=== PATIENT | female | born 1945 | race African-American/Black ===

== ENCOUNTER → 2016-05-21 | Outpatient (CLI) | payer MEDICARE, MEDICAID ==
[2016-05-21 13:04] LABS: HEMATOCRIT 36.5 % (36.0-47.0); HEMOGLOBIN 12.1 g/dL (12.0-15.5); HGB HCT DIFFERENCE -0.2; MEAN CORPUSCULAR HGB CONC 33.2 g/dL (32.0-36.0); MEAN CORPUSCULAR VOLUME 93 fl (80-97); RED BLOOD COUNT 3.91 10^6/uL (3.72-5.28); RED CELL DISTRIBUTION WIDTH 12.6 % (11.5-14.0); WHITE BLOOD COUNT 4.6 10^3/uL (4.0-10.5)
[2016-05-21 13:22] LABS: ANION GAP 13 (5-19); BLOOD UREA NITROGEN 13 mg/dL (7-20); CALCIUM 9.9 mg/dL (8.4-10.2); CARBON DIOXIDE 24 mmol/L (22-30); CHLORIDE 100 mmol/L (98-107); CREATININE RESULT 1.03 mg/dL (0.52-1.25); GLUCOSE 104 mg/dL (75-110); MAGNESIUM 1.4 mg/dL (1.6-2.3); POTASSIUM 4.8 mmol/L (3.6-5.0); SODIUM 137.4 mmol/L (137-145)
== END ==
LOC: OD 11:20
PROVIDERS: ATTEND Internal Medicine Nephrology
DX: I12.9 Hypertensive chronic kidney disease with stage 1 through stage 4 chronic kidney disease, or unspecified chronic kidney disease (principal); N18.2 Chronic kidney disease, stage 2 (mild); E83.42 Hypomagnesemia; D64.9 Anemia, unspecified; E87.5 Hyperkalemia
CPT/HCPCS: 36415; 80048; 83735; 85027

== ENCOUNTER → 2016-07-08 | Outpatient (CLI) | payer MEDICARE, MEDICAID | LOC: RAD 17:26 | PROVIDERS: ATTEND Family Medicine | DX: R09.1 Pleurisy (principal) | CPT/HCPCS: 71020 ==

== ENCOUNTER 2016-07-27 20:37 | Emergency (ER) | payer MEDICARE, MEDICAID ==
--- NOTE | 2016-07-27 20:55 | ER Document Report ---
ED Medical Screen (RME) - General Stated Complaint: POSSIBLE HIGH BLOOD PRESSURE Time seen by provider: 20:50 Mode of Arrival: Wheelchair Information source: Patient Notes: 71-year-old female presents to ED for elevated blood pressure headache since afternoon going down her left arm. She has history of previous strokes on the side. With some weakness on the left side which with her previous stroke. Patient states she is on Plavix. Spoke with Dr. Garcia concerning symptoms we' ll get a CT of head per her request. I have greeted and performed a rapid initial assessment of this patient. A comprehensive ED assessment and evaluation of the patient, analysis of test results and completion of medical decision making process will be conducted by an additional ED providers. TRAVEL OUTSIDE OF THE [place] IN LAST 30 DAYS: No - Related Data Allergies/Adverse Reactions: penicillin G [Penicillin G] Allergy (Severe, Verified 07/05/14 23:28) Hives Past Medical History - Past Medical History Cardiac Medical History: Reports: Hx Hypertension Neurological Medical History: Reports: Hx Cerebrovascular Accident, Hx Seizures Endocrine Medical History: Reports: Hx Diabetes Mellitus Type 2 Musculoskeltal Medical History: Reports Hx Arthritis Past Surgical History: Reports: Hx Hysterectomy - Immunizations Hx Diphtheria, Pertussis, Tetanus Vaccination: No
[2016-07-28 00:29] LABS: ABSOLUTE BASOPHILS # (AUTO) 0.1 10^3/uL (0.0-0.2); ABSOLUTE LYMPHOCYTES (AUTO) 3.8 10^3/uL (0.5-4.7); ABSOLUTE MONOCYTES (AUTO) 0.4 10^3/uL (0.1-1.4); ABSOLUTE NEUT (AUTO) 4.1 10^3/uL (1.7-8.2); BASOPHILS % (AUTO) 0.8 % (0-2); EOSINOPHILS % (AUTO) 0.3 % (0-6); HEMATOCRIT 34.5 % (36.0-47.0); HEMOGLOBIN 11.7 g/dL (12.0-15.5); HGB HCT DIFFERENCE 0.6; LYMPHOCYTES % (AUTO) 45.7 % (13-45); MEAN CORPUSCULAR HEMOGLOBIN 31.6 pg (27.0-33.4); MEAN CORPUSCULAR VOLUME 93 fl (80-97); MONOCYTES % (AUTO) 4.9 % (3-13); SEGMENTED NEUTROPHILS % (AUTO) 48.3 % (42-78); WHITE BLOOD COUNT 8.4 10^3/uL (4.0-10.5)
[2016-07-28 00:41] LABS: ALANINE AMINOTRANSFERASE 32 U/L (9-52); ALKALINE PHOSPHATASE 75 U/L (38-126); ANION GAP 15 (5-19); ASPARTATE AMINO TRANSFERASE 23 U/L (14-36); BILIRUBIN,DIRECT 0.2 mg/dL (0.0-0.4); BILIRUBIN,TOTAL 0.6 mg/dL (0.2-1.3); BLOOD UREA NITROGEN 22 mg/dL (7-20); CALCIUM 10.8 mg/dL (8.4-10.2); CARBON DIOXIDE 25 mmol/L (22-30); CHLORIDE 97 mmol/L (98-107); CREATINE KINASE 51 U/L (30-135); CREATININE RESULT 0.96 mg/dL (0.52-1.25); GLUCOSE 184 mg/dL (75-110); POTASSIUM 4.3 mmol/L (3.6-5.0); SODIUM 137.3 mmol/L (137-145)
[2016-07-28 00:46] LABS: PROTHROMBIN TIME 11.4 SEC (11.4-15.4)
[2016-07-28 00:53] LABS: CREATINE KINASE MB 0.56 ng/mL (<4.55)
[2016-07-28 00:55] LABS: TROPONIN I < 0.012 ng/mL
[2016-07-28 04:29] VITALS: BP 152/87
--- NOTE | 2016-07-28 06:15 | ER Document Report ---
ED General - General Chief Complaint: High Blood Pressure Stated Complaint: POSSIBLE HIGH BLOOD PRESSURE Mode of Arrival: Wheelchair Information source: Patient TRAVEL OUTSIDE OF THE [place] IN LAST 30 DAYS: No - HPI Notes: Patient presents with report of headache onset this afternoon, not the worst of her life. She checked her blood pressure and found it was 200 systolic and up and she took an additional dose of losartan 50 mg and came into the emergency department. Patient denies any new numbness or weakness, stating that she has a chronic left -sided weakness and mild related to an old stroke but she is able to ambulate without assistance. The patient denies any head injury. The patient reports no neck stiffness or chest pain or difficulty breathing. She states that several months ago she was taken off of her nifedipine. - Related Data Allergies/Adverse Reactions: penicillin G [Penicillin G] Allergy (Severe, Verified 07/05/14 23:28) Hives Past Medical History - General Information source: Patient - Social History Smoking Status: Never Smoker Chew tobacco use (# tins/day): No Frequency of alcohol use: None Drug Abuse: None Family History: Reviewed & Not Pertinent Patient has suicidal ideation: No Patient has homicidal ideation: No - Past Medical History Cardiac Medical History: Reports: Hx Hypertension Neurological Medical History: Reports: Hx Cerebrovascular Accident, Hx Seizures Endocrine Medical History: Reports: Hx Diabetes Mellitus Type 2 Renal/ Medical History: Denies: Hx Peritoneal Dialysis Musculoskeltal Medical History: Reports Hx Arthritis Past Surgical History: Reports: Hx Hysterectomy - Immunizations Hx Diphtheria, Pertussis, Tetanus Vaccination: No Hx Pneumococcal Vaccination: 04/24/12 Review of Systems - Review of Systems Notes: REVIEW OF SYSTEMS: CONSTITUTIONAL : Denies fever, chills, or sweats. Denies recent illness. EENT: Denies eye, ear, throat, or mouth pain or symptoms. Denies nasal or sinus congestion or discharge. Denies throat, tongue, or mouth swelling or difficulty swallowing. CARDIOVASCULAR: Denies chest pain. Denies palpitations or racing or irregular heart beat. Denies ankle edema. RESPIRATORY: Denies cough, cold, or chest congestion. Denies shortness of breath, difficulty breathing, or wheezing. GASTROINTESTINAL: Denies abdominal pain or distention. Denies nausea, vomiting , or diarrhea. Denies blood in vomitus, stools, or per rectum. Denies black, tarry stools. Denies constipation. GENITOURINARY: Denies difficulty urinating, painful urination, burning, frequency, blood in urine, or discharge. FEMALE GENITOURINARY: Denies vaginal bleeding, heavy or abnormal periods, irregular periods. Denies vaginal discharge or odor. MUSCULOSKELETAL: Denies back or neck pain or stiffness. Denies joint pain or swelling. SKIN: Denies rash, lesions or sores. HEMATOLOGIC : Denies easy bruising or bleeding. LYMPHATIC: Denies swollen, enlarged glands. NEUROLOGICAL: Denies confusion or altered mental status. Denies passing out or loss of consciousness. Denies dizziness or lightheadedness. Denies problems with gait or speech. Denies sensory loss, numbness, or tingling. Denies seizures. PSYCHIATRIC: Denies anxiety or stress. Denies depression, suicidal ideation, or homicidal ideation. ALL OTHER SYSTEMS REVIEWED AND NEGATIVE. Dictation was performed using [employer] voice recognition software Physical Exam - Vital signs Vitals: Temp Pulse Resp BP Pulse Ox 98.3 F 99 18 206/90 H 100 07/27/16 20:50 07/27/16 20:50 07/27/16 20:50 07/27/16 20:50 07/27/16 20:50 - Notes Notes: PHYSICAL EXAMINATION: GENERAL: Well-appearing, well-nourished and in no acute distress. HEAD: Atraumatic, normocephalic. EYES: Pupils equal round and reactive to light, extraocular movements intact, conjunctiva are normal. ENT: Nares patent, oropharynx clear without exudates. Moist mucous membranes. NECK: Normal range of motion, supple without lymphadenopathy LUNGS: Breath sounds clear to auscultation bilaterally and equal. No wheezes rales or rhonchi. HEART: Regular rate and rhythm without murmurs ABDOMEN: Soft, nontender, nondistended abdomen. No guarding, no rebound. No masses appreciated. Female : deferred Musculoskeletal: Normal range of motion, no pitting or edema. No cyanosis. NEUROLOGICAL: Cranial nerves grossly intact. Normal speech. Patient has a mild left sided weakness 5- / 5 as compared to 5 /5 on the right. This is chronic according to the patient. PSYCH: Normal mood, normal affect. SKIN: Warm, Dry, normal turgor, no rashes or lesions noted. Course - Re-evaluation Re-evalutation: 07/28/16 06:21 Repeat blood pressures were improved down to 150/87 and 152/87. The patient was ambulatory without complaint. She denied any headache. I reviewed the labs with the patient. I informed her that she could take Tylenol as directed for any headache. She was instructed she needed to follow-up with her regular practitioner related to any further management of her medications. - Vital Signs Vital signs: Temp Pulse Resp BP Pulse Ox 97.8 F 80 18 152/87 H 98 07/28/16 03:47 07/28/16 04:27 07/28/16 03:47 07/28/16 04:27 07/28/16 04:27 - Laboratory Result Diagrams: 07/28/16 00:13 07/28/16 00:13 Laboratory results interpreted by me: 07/28/16 07/28/16 00:13 00:13 RBC 3.70 L Hgb 11.7 L Hct 34.5 L Lymphocytes % 45.7 H Chloride 97 L BUN 22 H Est GFR (Non-Af Amer) 57 L Glucose 184 H Calcium 10.8 H Discharge - Discharge Clinical Impression: Headache Hypertension Qualifiers: Hypertension type: essential hypertension Qualified Code(s): I10 - Essential ( primary) hypertension Condition: Stable Disposition: HOME, SELF-CARE Instructions: High Blood Pressure ([facility]) Additional Instructions: Headache The physician does not feel that the headache you are experiencing has a serious underlying cause. Most headaches are due to emotional stress, with resultant muscle tension (tension headache). Occasionally, headaches are secondary to changes in the blood vessels of the scalp (vascular headache and migraine headache). Sometimes, a headache is the first symptom of another developing illness, such as a viral infection. You have no evidence of stroke, bleeding, meningitis, or other serious cause of your headache. The treatment of headaches varies with the severity and cause of the pain. Not all headaches need pain shots. In fact, there is evidence that using narcotics for headaches may make them worse in the long run. The physician will determine the therapy that's in your best interest. If you develop a fever, if the headache is different from any you've previously experienced, or if the headache progressively worsens, then call your physician at once or go to the emergency room. YOU MAY TAKE TYLENOL DIRECTED FOR HEADACHE. FOLLOWUP WITH YOUR REGULAR PHYSICIAN CONCERNING YOUR BLOOD PRESSURE. Forms: Elevated Blood Pressure Referrals: SERAFIN HEADLEY DO [Primary Care Provider] - Follow up as needed
== END 2016-07-28 06:29 | disposition home or self-care (01) ==
LOC: ER 20:37
DX: R51 Headache (principal); I10 Essential (primary) hypertension; R53.1 Weakness
CPT/HCPCS: 36415; 70450; 71020; 80053; 82550; 82553; 84484; 85025; 85610; 85730; 99284

== ENCOUNTER → 2016-10-22 | Outpatient (CLI) | payer MEDICARE, MEDICAID ==
[2016-10-22 14:20] LABS: HEMATOCRIT 35.2 % (36.0-47.0); HEMOGLOBIN 11.6 g/dL (12.0-15.5); HGB HCT DIFFERENCE -0.4; MEAN CORPUSCULAR HEMOGLOBIN 31.2 pg (27.0-33.4); MEAN CORPUSCULAR HGB CONC 32.9 g/dL (32.0-36.0); MEAN CORPUSCULAR VOLUME 95 fl (80-97); RED BLOOD COUNT 3.71 10^6/uL (3.72-5.28); RED CELL DISTRIBUTION WIDTH 12.7 % (11.5-14.0); WHITE BLOOD COUNT 4.6 10^3/uL (4.0-10.5)
[2016-10-22 14:39] LABS: ANION GAP 14 (5-19); BLOOD UREA NITROGEN 19 mg/dL (7-20); CALCIUM 10.2 mg/dL (8.4-10.2); CARBON DIOXIDE 24 mmol/L (22-30); CHLORIDE 100 mmol/L (98-107); GLUCOSE 151 mg/dL (75-110); MAGNESIUM 1.3 mg/dL (1.6-2.3); POTASSIUM 4.5 mmol/L (3.6-5.0); SODIUM 138.4 mmol/L (137-145)
== END ==
LOC: OD 13:23
PROVIDERS: ATTEND Internal Medicine Nephrology
DX: I12.9 Hypertensive chronic kidney disease with stage 1 through stage 4 chronic kidney disease, or unspecified chronic kidney disease (principal); N18.2 Chronic kidney disease, stage 2 (mild); E11.9 Type 2 diabetes mellitus without complications; D64.9 Anemia, unspecified
CPT/HCPCS: 36415; 80048; 83735; 85027

== ENCOUNTER → 2016-11-16 | Outpatient (CLI) | payer MEDICARE, MEDICAID ==
[2016-11-16 15:59] LABS: HEMOGLOBIN 10.9 g/dL (12.0-15.5); HGB HCT DIFFERENCE -1.3; MEAN CORPUSCULAR HEMOGLOBIN 30.8 pg (27.0-33.4); MEAN CORPUSCULAR HGB CONC 32.1 g/dL (32.0-36.0); MEAN CORPUSCULAR VOLUME 96 fl (80-97); RED BLOOD COUNT 3.54 10^6/uL (3.72-5.28); RED CELL DISTRIBUTION WIDTH 12.1 % (11.5-14.0)
[2016-11-16 16:03] LABS: APPEARANCE,URINE CLEAR; BILIRUBIN,URINE NEGATIVE (NEGATIVE); GLUCOSE, URINE NEGATIVE (NEGATIVE); KETONES,URINE NEGATIVE (NEGATIVE); LEUKOCYTE ESTERASE,URINE TRACE (NEGATIVE); NITRITE,URINE NEGATIVE (NEGATIVE); PROTEIN,URINE NEGATIVE (NEGATIVE); URINE SPECIFIC GRAVITY 1.004; UROBILINOGEN,URINE NEGATIVE mg/dL (<2.0)
[2016-11-16 16:30] LABS: ANION GAP 14 (5-19); BLOOD UREA NITROGEN 15 mg/dL (7-20); CALCIUM 10.1 mg/dL (8.4-10.2); CARBON DIOXIDE 23 mmol/L (22-30); CHLORIDE 98 mmol/L (98-107); CREATININE RESULT 1.09 mg/dL (0.52-1.25); GLUCOSE 139 mg/dL (75-110); MAGNESIUM 1.7 mg/dL (1.6-2.3); POTASSIUM 5.1 mmol/L (3.6-5.0); SODIUM 134.9 mmol/L (137-145)
== END ==
LOC: OD 15:00
PROVIDERS: ATTEND Physician Assistant Medical
DX: N18.2 Chronic kidney disease, stage 2 (mild) (principal); E87.5 Hyperkalemia; E83.42 Hypomagnesemia; E11.9 Type 2 diabetes mellitus without complications
CPT/HCPCS: 36415; 80048; 81001; 83735; 85027

== ENCOUNTER → 2017-05-21 | Outpatient (CLI) | payer MEDICARE, MEDICAID ==
[2017-05-21 15:06] LABS: HEMATOCRIT 34.6 % (36.0-47.0); HEMOGLOBIN 11.4 g/dL (12.0-15.5); MEAN CORPUSCULAR HEMOGLOBIN 30.9 pg (27.0-33.4); MEAN CORPUSCULAR HGB CONC 32.9 g/dL (32.0-36.0); MEAN CORPUSCULAR VOLUME 94 fl (80-97); PLATELET COUNT 332 10^3/uL (150-450); RED BLOOD COUNT 3.69 10^6/uL (3.72-5.28); RED CELL DISTRIBUTION WIDTH 12.8 % (11.5-14.0); WHITE BLOOD COUNT 7.2 10^3/uL (4.0-10.5)
[2017-05-21 15:12] LABS: APPEARANCE,URINE CLEAR; BILIRUBIN,URINE NEGATIVE (NEGATIVE); COLOR,URINE STRAW; GLUCOSE, URINE NEGATIVE (NEGATIVE); KETONES,URINE NEGATIVE (NEGATIVE); LEUKOCYTE ESTERASE,URINE TRACE (NEGATIVE); NITRITE,URINE NEGATIVE (NEGATIVE); PROTEIN,URINE NEGATIVE (NEGATIVE); URINE SPECIFIC GRAVITY 1.003; UROBILINOGEN,URINE NEGATIVE mg/dL (<2.0)
[2017-05-21 15:32] LABS: ANION GAP 17 (5-19); BLOOD UREA NITROGEN 14 mg/dL (7-20); CALCIUM 10.9 mg/dL (8.4-10.2); CARBON DIOXIDE 24 mmol/L (22-30); CHLORIDE 99 mmol/L (98-107); GLUCOSE 76 mg/dL (75-110); MAGNESIUM 1.6 mg/dL (1.6-2.3); POTASSIUM 5.3 mmol/L (3.6-5.0); SODIUM 139.6 mmol/L (137-145); URINE PROTEIN 14.1 mg/dL (<12)
[2017-05-21 15:35] LABS: UR PRO/CREAT RATIO RESULT 0.6 mg/mg (0.0-0.2); URINE CREATININE 21.7 mg/dL (15-278)
== END ==
LOC: OD 13:55
PROVIDERS: ATTEND Physician Assistant Medical
DX: I12.9 Hypertensive chronic kidney disease with stage 1 through stage 4 chronic kidney disease, or unspecified chronic kidney disease (principal); N18.2 Chronic kidney disease, stage 2 (mild); E83.42 Hypomagnesemia; E11.9 Type 2 diabetes mellitus without complications; E87.5 Hyperkalemia
CPT/HCPCS: 36415; 80048; 81001; 82570; 83735; 84156; 85027

== ENCOUNTER → 2017-06-28 | Outpatient (CLI) | payer MEDICARE, MEDICAID ==
--- NOTE | 2017-06-28 13:20 | WOMENS IMAGING REPORT ---
EXAM DESCRIPTION: BONE DENSITY HIP/SPINE COMPLETED DATE/TIME: 06/28/2017 10:17 am REASON FOR STUDY: AGE-RELATED OSTEOPROSIS; M81.0 M81.0 AGE-RELATED OSTEOPOROSIS W/O CURRENT PATHOLO GICAL FRAC Z12.31 ENCNTR SCREEN MAMMOGRAM FOR MALIGNANT NEOPLASM OF GERALD COMPARISON: 08/27/2014 TECHNIQUE: Dual-Energy X-ray Absorptiometry (DEXA) of the AP Spine and Hip. LIMITATIONS: None. FINDINGS: LUMBAR SPINE: The bone mineral density (BMD) measured from L1-L4 in the AP projection correlates with a T-score of -1.4, which is osteopenia as defined by the World Health Organization. No significant change since p rior study. HIP: The bone mineral density (BMD) measured in the left hip correlates with a T-score of -2 in the femora l neck, which is osteopenia as defined by the World Health Organization. IMPRESSION: 1. LUMBAR SPINE: OSTEOPENIA. 2. HIP: OSTEOPENIA. COMMENT: The World Health Organization defines low BMD as follows: T-score: Normal: Greater than -1.0 Osteopenia: Between -1.0 and -2.5 Osteoporosis: Less than -2.5 without fractures Established osteoporosis: Less than -2.5 with fractures In general, you may wish to consider: Diagnosis Treatment Follow-up DEXA Normal BMD Prevention 2-3 years Osteopenia Prevention/Therapy 1-2 years Osteoporosis Therapy Yearly TECHNICAL DOCUMENTATION: JOB ID: [id number] [employer]- All Rights Reserved
--- NOTE | 2017-06-28 17:23 | WOMENS IMAGING REPORT ---
EXAM DESCRIPTION: BILAT SCREENING MAMMO W/CAD COMPLETED DATE/TIME: 06/28/2017 10:17 am REASON FOR STUDY: ROUTINE SCREENING; Z12.31 M81.0 AGE-RELATED OSTEOPOROSIS W/O CURRENT PATHOLOGICAL FRAC Z12.31 ENCNTR SCREEN MAMMOGRAM FOR MALIGNANT NEOPLASM OF GERALD COMPARISON: 2008 to 2015 TECHNIQUE: Standard craniocaudal and mediolateral oblique views of each breast recorded using digita l acquisition. LIMITATIONS: None. FINDINGS: No masses, calcifications or architectural distortion. No areas of suspicion. Read with the assistance of CAD. .[facility] - R2 Cenova Version 1.3 .[facility] - R2 Cenova Version 1.3 .[facility] - R2 Cenova Version 2.4 .[facility] - R2 Cenova Version 2.4 .[facility] - R2 Cryptologic Linguist Version 9.2 IMPRESSION: NORMAL MAMMOGRAM. BIRADS 1. BREAST DENSITY: b. There are scattered areas of fibroglandular density. BIRAD: 1 NEGATIVE RECOMMENDATION: ROUTINE SCREENING COMMENT: The patient has been notified of the results by letter per SA requirements. Additional no tification policies are in place for contacting patient with suspicious or incomplete findings. Quality ID #[id number]: The [employer] recommends an annual screening mammogram for women aged 40 years or over. This facility utilizes a reminder system to ensure that all patients receive reminder letters, and/or direct phone calls for appointments. This includes reminders for routine scr eening mammograms, diagnostic mammograms, or other Breast Imaging Interventions when appropriate. Th is patient will be placed in the appropriate reminder system. The [employer] (ACR) has developed recommendations for screening MRI of the breast s in certain patient populations, to be used in conjunction with mammography. Breast MRI surveillanc e may be appropriate for women with more than 20% lifetime risk of developing breast cancer as deter mined by genetic testing, significant family history of the disease, or history of mantle radiation f or Hodgkins Disease. ACR Practice Guidelines 2008. TECHNICAL DOCUMENTATION: FINDING NUMBER: (1) ASSESSMENT: (1) JOB ID: [id number] [employer]- All Rights Reserved
== END ==
LOC: WI 09:51
PROVIDERS: ATTEND Family Medicine
DX: Z12.31 Encounter for screening mammogram for malignant neoplasm of breast (principal); M81.0 Age-related osteoporosis without current pathological fracture
CPT/HCPCS: 77067; 77080

== ENCOUNTER → 2017-12-06 | Outpatient (CLI) | payer MEDICARE, MEDICAID ==
[2017-12-06 10:58] LABS: HEMATOCRIT 34.6 % (36.0-47.0); HEMOGLOBIN 11.5 g/dL (12.0-15.5); MEAN CORPUSCULAR HEMOGLOBIN 31.5 pg (27.0-33.4); MEAN CORPUSCULAR HGB CONC 33.3 g/dL (32.0-36.0); MEAN CORPUSCULAR VOLUME 95 fl (80-97); PLATELET COUNT 321 10^3/uL (150-450); RED BLOOD COUNT 3.66 10^6/uL (3.72-5.28); RED CELL DISTRIBUTION WIDTH 12.3 % (11.5-14.0); WHITE BLOOD COUNT 6.2 10^3/uL (4.0-10.5)
[2017-12-06 11:03] LABS: APPEARANCE,URINE CLEAR; BILIRUBIN,URINE NEGATIVE (NEGATIVE); COLOR,URINE YELLOW; GLUCOSE, URINE NEGATIVE (NEGATIVE); KETONES,URINE NEGATIVE (NEGATIVE); LEUKOCYTE ESTERASE,URINE NEGATIVE (NEGATIVE); NITRITE,URINE NEGATIVE (NEGATIVE); PROTEIN,URINE NEGATIVE (NEGATIVE); URINE SPECIFIC GRAVITY 1.009; UROBILINOGEN,URINE NEGATIVE mg/dL (<2.0)
[2017-12-06 11:22] LABS: ANION GAP 15 (5-19); BLOOD UREA NITROGEN 17 mg/dL (7-20); CALCIUM 9.8 mg/dL (8.4-10.2); CARBON DIOXIDE 24 mmol/L (22-30); CHLORIDE 90 mmol/L (98-107); GLUCOSE 114 mg/dL (75-110); POTASSIUM 5.4 mmol/L (3.6-5.0)
== END ==
LOC: OD 09:58
PROVIDERS: ATTEND Physician Assistant Medical
DX: E11.22 Type 2 diabetes mellitus with diabetic chronic kidney disease (principal); N18.2 Chronic kidney disease, stage 2 (mild); I12.9 Hypertensive chronic kidney disease with stage 1 through stage 4 chronic kidney disease, or unspecified chronic kidney disease
CPT/HCPCS: 36415; 80048; 81001; 83735; 85027

== ENCOUNTER → 2017-12-10 | Outpatient (CLI) | payer MEDICARE, MEDICAID ==
[2017-12-10 13:21] LABS: ANION GAP 14 (5-19); BLOOD UREA NITROGEN 20 mg/dL (7-20); CALCIUM 10.5 mg/dL (8.4-10.2); CARBON DIOXIDE 25 mmol/L (22-30); CHLORIDE 97 mmol/L (98-107); GLUCOSE 187 mg/dL (75-110); POTASSIUM 5.4 mmol/L (3.6-5.0); SODIUM 135.9 mmol/L (137-145)
== END ==
LOC: OD 11:15
PROVIDERS: ATTEND Physician Assistant Medical
DX: E87.1 Hypo-osmolality and hyponatremia (principal)
CPT/HCPCS: 36415; 80048

== ENCOUNTER 2018-01-15 18:00 | Inpatient (IN) | payer MEDICARE, MEDICAID ==
--- NOTE | 2018-01-15 18:46 | ER Document Report ---
ED General - General Chief Complaint: General Weakness Stated Complaint: ALTERED MENTAL STATUS Time Seen by Provider: 01/15/18 18:28 Notes: Patient is a 72-year-old female with a past medical history of hypertension, chronic kidney disease, who presents after 2 syncopal episodes today. The patient states that apparently she was getting up to use the restroom, when walking back from the restroom apparently had a loss of consciousness witnessed by family. She did strike her head and left knee during the fall. The patient reports that she has been having persistent diarrhea for approximately the past 36 hours. She has not had any associated vomiting. Minimal p.o. intake today. No known sick contacts. Had antibiotic use within the past 3 weeks. She has not seen her general doctor regarding today's concerns. She denies any focal abdominal pain. Does note a throbbing, aching, dull pain to her left knee and left forehead. Nothing improves or worsens this pain. Nothing improves or worsens her diarrhea. TRAVEL OUTSIDE OF THE [place] IN LAST 30 DAYS: No - Related Data Allergies/Adverse Reactions: penicillin G [Penicillin G] Allergy (Severe, Verified 01/15/18 18:32) Hives Past Medical History - General Information source: Patient, Relative - Social History Smoking Status: Former Smoker Frequency of alcohol use: None Drug Abuse: None Lives with: Family Family History: Reviewed & Not Pertinent Patient has suicidal ideation: No Patient has homicidal ideation: No - Past Medical History Cardiac Medical History: Reports: Hx Hypercholesterolemia, Hx Hypertension Neurological Medical History: Reports: Hx Cerebrovascular Accident, Hx Seizures Endocrine Medical History: Reports: Hx Diabetes Mellitus Type 2 Renal/ Medical History: Denies: Hx Peritoneal Dialysis Musculoskeletal Medical History: Reports Hx Arthritis Past Surgical History: Reports: Hx Hysterectomy - Immunizations Hx Diphtheria, Pertussis, Tetanus Vaccination: No Hx Pneumococcal Vaccination: 04/24/12 Review of Systems - Review of Systems Notes: Constitutional: Negative for fever. HENT: Negative for sore throat. Eyes: Negative for visual changes. Cardiovascular: Negative for chest pain. Positive for syncope Respiratory: Negative for shortness of breath. Gastrointestinal: Positive for diarrhea Genitourinary: Negative for dysuria. Musculoskeletal: Negative for back pain. Skin: Negative for rash. Neurological: Negative for headaches, weakness or numbness. 10 point ROS negative except as marked above and in HPI. Physical Exam - Vital signs Vitals: Temp Resp Pulse Ox 97.9 F 20 98 01/15/18 18:02 01/15/18 18:02 01/15/18 18:02 Interpretation: Normal Notes: PHYSICAL EXAMINATION: GENERAL: Well-appearing, no acute distress. HEAD: Atraumatic, normocephalic. EYES: Pupils equal round and reactive to light, extraocular movements intact, sclera anicteric, conjunctiva are normal. ENT: nares patent, no oral pharyngeal trauma. No hemotympanum, no Cantrell's sign , no raccoon eyes. Dry mucous membranes NECK: No midline cervical spine tenderness. Patient able to move their head to 45 bilaterally without any discomfort. LUNGS: Breath sounds clear to auscultation bilaterally and equal. No wheezes rales or rhonchi. HEART: Regular rate and rhythm without murmurs. CHEST WALL: No ecchymosis over the chest wall. ABDOMEN: Soft, nontender, normoactive bowel sounds. No guarding, no rebound. No abdominal bruising EXTREMITIES: Normal range of motion, no pitting or edema. No long bone deformities. BACK: No midline spinal tenderness, step-offs, or deformities. NEUROLOGICAL: Face symmetric. Tongue protrudes midline. Extraocular motions intact. Pupils are 2 mm and equally reactive. Normal speech, normal gait. 5 out of 5 strength in both the distal and proximal upper and lower extremities bilaterally. Sensation is grossly intact throughout. PSYCH: Normal mood, normal affect. SKIN: Warm, Dry, normal turgor, abrasions over the left forehead and left knee Course - Re-evaluation Re-evalutation: 01/15/18 18:44 Patient presents after having what appear to be 2 syncopal episodes today in the context of profuse diarrhea for the past 2 days. History is limited as the patient does not recall exactly happened in the family member who was present at the time of the events is not present. Apparently the patient has had 10-20 bowel movements since yesterday all of which are diarrheal. She had 2 episodes today in which she became lightheaded and then passed out. The patient reports that she has tried to eat a bowl of soup today but did not get that down has minimal additional p.o. intake. The patient on examination has no focal neurologic deficits beyond some mild baseline weakness on the left side which she and her family state is baseline. She denies any chest pain or shortness of breath. She has no abdominal tenderness by complaint on exam. She last had antibiotics approximately 2 weeks ago. Different considerations include probable syncopal episode in the setting of dehydration from prominent diarrhea , far less likely to be a dysrhythmia, [place], acute seizure, or acute pulmonary embolus. The patient did strike her head and left knee when she fell. A CT of the head and x-ray of the left knee will be obtained. In terms of source of diarrhea there is concern for possible C. difficile colitis given recent antibiotic use. 01/15/18 20:07 Labs do demonstrate findings consistent with acute kidney injury in the setting of likely dehydration. BUN creatinine ratio is consistent with prerenal azotemia. Patient has associated I derangements of mild hyperkalemia, hypercalcemia and hyponatremia. IV fluids have been initiated. CT of the head and x-ray of the left knee are unremarkable. Patient's renal dysfunction is new , last renal functions obtained in December were noted to be normal. Given her new onset renal failure in the setting of dehydration I do suspect this is the cause of her multiple syncopal episodes today. She has been discussed with the hospitalist Dr. Grossman who has accepted her for admission. - Vital Signs Vital signs: Temp Pulse Resp BP Pulse Ox 98.1 F 76 19 160/88 H 100 01/15/18 21:52 01/16/18 02:00 01/15/18 21:52 01/15/18 21:52 01/15/18 21:52 - Laboratory Result Diagrams: 01/16/18 02:19 01/16/18 02:19 Laboratory results interpreted by me: 01/15/18 01/15/18 18:23 18:28 Seg Neutrophils % 81.8 H Monocytes % 2.5 L Absolute Neutrophils 8.4 H Sodium 136.2 L Potassium 5.7 H Chloride 94 L Carbon Dioxide 21 L Anion Gap 21 H BUN 21 H Creatinine 2.44 H Est GFR ( Amer) 24 L Est GFR (Non-Af Amer) 20 L Glucose 211 H Calcium 12.5 H* Total Protein 9.9 H Albumin 5.8 H - Diagnostic Test Radiology reviewed: Image reviewed, Reports reviewed Radiology results interpreted by me: 01/15/18 20:08 CT head: No acute intracranial bleed or mass Left knee x-ray: No acute fracture or dislocation Discharge - Discharge Clinical Impression: Acute kidney injury (nontraumatic), Dehydration Syncopal episodes Qualifiers: Syncope type: unspecified Qualified Code(s): R55 - Syncope and collapse Condition: Fair Disposition: ADMITTED INPATIENT Admitting Provider: Hospitalist Unit Admitted: Telemetry
--- NOTE | 2018-01-15 19:11 | RADIOLOGY REPORT (SQ) ---
EXAM DESCRIPTION: CHEST SINGLE VIEW COMPLETED DATE/TIME: 01/15/2018 6:51 pm REASON FOR STUDY: ams, cough COMPARISON: None. EXAM PARAMETERS: NUMBER OF VIEWS: One view. TECHNIQUE: Single frontal radiographic view of the chest acquired. RADIATION DOSE: NA LIMITATIONS: None. FINDINGS: LUNGS AND PLEURA: No opacities, masses or pneumothorax. No pleural effusion. MEDIASTINUM AND HILAR STRUCTURES: No masses. Contour normal. HEART AND VASCULAR STRUCTURES: Heart normal in size. Normal vasculature. BONES: No acute findings. HARDWARE: None in the chest. OTHER: No other significant finding. IMPRESSION: NO ACUTE RADIOGRAPHIC FINDING IN THE CHEST. TECHNICAL DOCUMENTATION: JOB ID: [id number] [employer]- All Rights Reserved Reading location - IP/workstation name: [email or web address]
[2018-01-15 19:12] LABS: ABSOLUTE BASOPHILS # (AUTO) 0.1 10^3/uL (0.0-0.2); ABSOLUTE LYMPHOCYTES (AUTO) 1.5 10^3/uL (0.5-4.7); ABSOLUTE MONOCYTES (AUTO) 0.3 10^3/uL (0.1-1.4); ABSOLUTE NEUT (AUTO) 8.4 10^3/uL (1.7-8.2); BASOPHILS % (AUTO) 0.6 % (0-2); EOSINOPHILS % (AUTO) 0.4 % (0-6); HEMATOCRIT 38.3 % (36.0-47.0); HEMOGLOBIN 12.9 g/dL (12.0-15.5); LYMPHOCYTES % (AUTO) 14.7 % (13-45); MEAN CORPUSCULAR HEMOGLOBIN 31.8 pg (27.0-33.4); MEAN CORPUSCULAR HGB CONC 33.6 g/dL (32.0-36.0); MEAN CORPUSCULAR VOLUME 95 fl (80-97); MONOCYTES % (AUTO) 2.5 % (3-13); PLATELET COUNT 409 10^3/uL (150-450); RED BLOOD COUNT 4.04 10^6/uL (3.72-5.28); RED CELL DISTRIBUTION WIDTH 12.9 % (11.5-14.0); SEGMENTED NEUTROPHILS % (AUTO) 81.8 % (42-78); TOTAL CELLS COUNTED % (AUTO) 100 %; WHITE BLOOD COUNT 10.3 10^3/uL (4.0-10.5)
--- NOTE | 2018-01-15 19:15 | RADIOLOGY REPORT (SQ) ---
EXAM DESCRIPTION: CT HEAD WITHOUT COMPLETED DATE/TIME: 01/15/2018 7:02 pm REASON FOR STUDY: head trauma COMPARISON: None. TECHNIQUE: Axial images acquired through the brain without intravenous contrast. Images reviewed wi th bone, brain and subdural windows. Additional sagittal and coronal reconstructions were generated. Images stored on PACS. All CT scanners at this facility use dose modulation, iterative reconstruction, and/or weight based d osing when appropriate to reduce radiation dose to as low as reasonably achievable (ALARA). [facility]: Dose Right [facility]: CareDose [facility]: Dose Right [facility]: Teradose 4D [facility]: Beabloo RADIATION DOSE: CT Rad equipment meets quality standard of care and radiation dose reduction techniq ues were employed. CTDIvol: 53.2 mGy. DLP: 1017 mGy-cm.mGy. LIMITATIONS: None. FINDINGS: VENTRICLES: Prominent. CEREBRUM: No masses. No hemorrhage. No midline shift. Areas of low density in the white matter mos t likely due to chronic micro-vascular ischemic change. No evidence for acute infarction. CEREBELLUM: No masses. No hemorrhage. No alteration of density. No evidence for acute infarction. EXTRAAXIAL SPACES: Age-related involutional change. No fluid collections. No masses. ORBITS AND GLOBE: No intra- or extraconal masses. Normal contour of globe without masses. CALVARIUM: No fracture. PARANASAL SINUSES: No fluid or mucosal thickening. SOFT TISSUES: No mass or hematoma. OTHER: No other significant finding. IMPRESSION: CHRONIC CHANGES OF ATROPHY AND MICROVASCULAR ISCHEMIA. NO ACUTE PROCESS. EVIDENCE OF ACUTE STROKE: NO. TECHNICAL DOCUMENTATION: JOB ID: [id number] Quality ID # [id number]: Final reports with documentation of one or more dose reduction techniques (e.g., Au tomated exposure control, adjustment of the mA and/or kV according to patient size, use of iterative reconstruction technique) 2010 [employer]- All Rights Reserved Reading location - IP/workstation name: [email or web address]
[2018-01-15 19:21] LABS: VENOUS BLOOD BASE EXCESS -2.5 mmol/L; VENOUS BLOOD HCO3 23.7 mmol/L (20-32); VENOUS BLOOD PCO2 46.3 mmHg (35-63); VENOUS BLOOD PH 7.33 (7.30-7.42)
[2018-01-15 19:24] LABS: ALANINE AMINOTRANSFERASE 21 U/L (9-52); ALBUMIN 5.8 g/dL (3.5-5.0); ALKALINE PHOSPHATASE 82 U/L (38-126); ASPARTATE AMINO TRANSFERASE 26 U/L (14-36); BILIRUBIN,DIRECT 0.4 mg/dL (0.0-0.4); BILIRUBIN,TOTAL 0.7 mg/dL (0.2-1.3); BLOOD UREA NITROGEN 21 mg/dL (7-20); GLUCOSE 211 mg/dL (75-110); POTASSIUM 5.7 mmol/L (3.6-5.0); TOTAL PROTEIN 9.9 g/dL (6.3-8.2)
[2018-01-15 19:29] LABS: CARBON DIOXIDE 21 mmol/L (22-30); CHLORIDE 94 mmol/L (98-107); SODIUM 136.2 mmol/L (137-145)
[2018-01-15 19:32] LABS: ANION GAP 21 (5-19)
[2018-01-15 19:34] LABS: CALCIUM 12.5 mg/dL (8.4-10.2)
[2018-01-15] MEDS ORDERED: NORMAL SALINE 1000 ML 1,000 ML IV ONE (19:45)
--- NOTE | 2018-01-15 19:47 | RADIOLOGY REPORT (SQ) ---
EXAM DESCRIPTION: KNEE LEFT 3 VIEWS COMPLETED DATE/TIME: 01/15/2018 7:11 pm REASON FOR STUDY: trauma COMPARISON: None. NUMBER OF VIEWS: Three views. TECHNIQUE: AP, lateral, and sunrise patella radiographic images acquired of the left knee. LIMITATIONS: None. FINDINGS: MINERALIZATION: Normal. BONES: No acute fracture or dislocation. No worrisome bone lesions. JOINT: No effusion. SOFT TISSUES: No soft tissue swelling. No radio-opaque foreign body. OTHER: No other significant finding. IMPRESSION: NEGATIVE STUDY OF THE LEFT KNEE. NO RADIOGRAPHIC EVIDENCE OF ACUTE INJURY. TECHNICAL DOCUMENTATION: JOB ID: [id number] [email or web address]- All Rights Reserved Reading location - IP/workstation name: [email or web address]
[2018-01-15] MEDS ORDERED: PROMETHAZINE HCL INJ 25 MG/1 ML VIAL IV PRN (21:19)
[2018-01-15] MEDS ORDERED: MAG HYDROX/AL HYDROX/SIMETH SUSP 30 ML UDCUP PO PRN (21:19)
[2018-01-15] MEDS ORDERED: PROMETHAZINE HCL 25 MG TABLET PO PRN (21:19)
[2018-01-15] MEDS ORDERED: ACETAMINOPHEN 325 MG TABLET PO PRN (21:19)
--- NOTE | 2018-01-15 21:21 | EKG REPORT ---
SEVERITY:- NORMAL ECG - SINUS RHYTHM : Confirmed by: Jack Marin MD 15-Jan-2018 21:20:08
[2018-01-15] MEDS: NORMAL SALINE 1000 ML 1,000 ML IV PRN (22:22)
[2018-01-15] MEDS: HEPARIN SOD (PORCINE) 5,000 UNIT/ML 1 ML SYRINGE SUBCUT SCH (22:25)
--- NOTE | 2018-01-15 23:02 | PDOC H&P ---
History of Present Illness Admission Date/PCP: 01/15/18 20:25 DAYDAY HUTTON PA-C Patient complains of: Syncope History of Present Illness: SOY WATTS is a 72 year old female Patient tells me that she was at home and she remembers going to the bathroom, suddenly had lightheadedness and she blacked out, as per the ED attending notes that she had 2 syncopal episodes. Her sister was with her but she is not at the bedside, other family members tells me that sister start her on the chair when suddenly she rolled her eyes to the back and was shaking, apparently did not have urinary or fecal incontinence. Apparently patient had 10-20 bowel movements since yesterday, denies having diarrhea today. Has been having minimal p.o. intake as per notes patient tells me that she thought she was drinking enough water. Found with acute kidney injury in the setting of CKD stage III with hyperkalemia with potassium 5.7. CT of the head negative. Chest x-ray negative. Left knee x-ray negative. Hypercalcemic with calcium 12.5. At the time of my evaluation patient was back to her baseline after IV fluids given. Past Medical History Cardiac Medical History: Reports: Hyperlipidema, Hypertension Neurological Medical History: Reports: Seizures Endocrine Medical History: Reports: Diabetes Mellitus Type 2 Musculoskeltal Medical History: Reports: Arthritis Psychiatric Medical History: Reports: Depression Hematology: Reports: Anemia Past Surgical History Past Surgical History: Reports: Hysterectomy Social History Smoking Status: Former Smoker - Senna smoking 20 years, never been a heavy smoker Frequency of Alcohol Use: None - used to be heavy drinker but quit 35 years ago Hx Recreational Drug Use: No Drugs: None Hx Prescription Drug Abuse: No Past Social History Note: Lives with her and her dog Family History Family History: Reviewed & Not Pertinent Parental Family History Reviewed: Yes - Did not know her parents, believe her mother had diabetes mellitus Children Family History Reviewed: NA Sibling(s) Family History Reviewed.: NA Medication/Allergy Home Medications: Clopidogrel Bisulfate [Plavix 75 mg Tablet] 75 mg PO DAILY 10/15/11 Metformin HCl [Glucophage 1000 mg Tablet] 1,000 mg PO BID 10/15/11 Cyclobenzaprine HCl [Flexeril 10 mg Tablet] 10 mg PO TID PRN 02/25/12 Donepezil HCl [Aricept Odt] 10 mg PO QHS 02/25/12 Mirtazapine [Remeron 15 mg Tablet] 15 mg PO QHS 02/25/12 Atorvastatin Calcium 40 mg PO DAILY 01/15/18 Cyproheptadine HCl 4 mg PO TID 01/15/18 Furosemide [Lasix 20 mg Tablet] 20 mg PO QAM PRN 01/15/18 Linaclotide [Linzess 145 Mcg Capsule] 145 mcg PO DAILY 01/15/18 Losartan Potassium 50 mg PO DAILY 01/15/18 Magnesium Oxide [Mag-Oxide Magnesium] 400 mg PO TID 01/15/18 Sitagliptin Phosphate [Januvia 50 mg Tablet] 50 mg PO DAILY 01/15/18 Allergies/Adverse Reactions: penicillin G [Penicillin G] Allergy (Severe, Verified 01/15/18 18:32) Hives Review of Systems Review of Systems: As outlined in the HPI, others negative Physical Exam Vital Signs: Temp Pulse Resp BP Pulse Ox 97.9 F 13 171/93 H 94 01/15/18 18:02 01/15/18 21:01 01/15/18 21:01 01/15/18 21:01 Additional comments: General appearance: Well-developed, well-nourished, alert and cooperative, and appears to be in no acute distress Head: Normocephalic Eyes: PEERL, EOMI, vision is grossly intact. Ears: External auditory canal and tympanic membranes clear, hearing grossly intact. Nose: No nasal discharge. Throat: Oral cavity and pharynx normal. No inflammation, swelling, exudate or lesions. Neck: Neck supple, nontender without lymphadenopathy, masses or thyromegaly. Cardiac: Normal S1 and S2. No S3, S4 or murmurs. Rhythm is regular. There is no peripheral edema, cyanosis or pallor. Extremities are warm and well perfused. Capillary refill is less than 2 seconds. No carotid bruits. Lungs: Clear to auscultation and percussion without rales, rhonchi, wheezing or diminished breath sounds. Not using accessory muscles. Abdomen: Positive bowel sounds. Soft. Nondistended, nontender. No guarding or rebound. No masses. No hepatosplenomegaly Extremities: No significant deformity or joint abnormality. No edema. Peripheral pulses intact. No varicosities. Neurological: Cranial nerves II through XII grossly intact. Mild left sided hemiparesis. Reflexes 2+ throughout. Skin: Skin normal color, texture and turgor with no lesions or eruptions, warm and dry. Psychiatric: The mental examination revealed the patient was oriented to person , place, and time. The patient was able to demonstrate good judgment on recent , without hallucinations, abnormal affect or abnormal behaviors. Results Laboratory Results: 01/15/18 22:25 Ionized Calcium Jose L 1.29 01/15/18 01/15/18 01/15/18 18:23 18:23 18:28 WBC 10.3 RBC 4.04 Hgb 12.9 Hct 38.3 MCV 95 MCH 31.8 MCHC 33.6 RDW 12.9 Plt Count 409 Seg Neutrophils % 81.8 H Lymphocytes % 14.7 Monocytes % 2.5 L Eosinophils % 0.4 Basophils % 0.6 Absolute Neutrophils 8.4 H Absolute Lymphocytes 1.5 Absolute Monocytes 0.3 Absolute Eosinophils 0.0 Absolute Basophils 0.1 VBG pH VBG pCO2 VBG HCO3 VBG Base Excess Sodium 136.2 L Potassium 5.7 H Chloride 94 L Carbon Dioxide 21 L Anion Gap 21 H BUN 21 H Creatinine 2.44 H Est GFR ( Amer) 24 L Est GFR (Non-Af Amer) 20 L Glucose 211 H POC Glucose Calcium 12.5 H* Ionized Calcium Jose L Total Bilirubin 0.7 Direct Bilirubin 0.4 AST 26 ALT 21 Alkaline Phosphatase 82 Troponin I < 0.012 Total Protein 9.9 H Albumin 5.8 H 01/15/18 01/15/18 01/15/18 18:55 20:26 22:25 WBC RBC Hgb Hct MCV MCH MCHC RDW Plt Count Seg Neutrophils % Lymphocytes % Monocytes % Eosinophils % Basophils % Absolute Neutrophils Absolute Lymphocytes Absolute Monocytes Absolute Eosinophils Absolute Basophils VBG pH 7.33 VBG pCO2 46.3 VBG HCO3 23.7 VBG Base Excess -2.5 Sodium Potassium Chloride Carbon Dioxide Anion Gap BUN Creatinine Est GFR ( Amer) Est GFR (Non-Af Amer) Glucose POC Glucose 157 H Calcium Ionized Calcium Jose L 1.29 Total Bilirubin Direct Bilirubin AST ALT Alkaline Phosphatase Troponin I Total Protein Albumin Impressions: Chest X-Ray 01/15/18 18:28 IMPRESSION: NO ACUTE RADIOGRAPHIC FINDING IN THE CHEST. Head CT 01/15/18 18:43 IMPRESSION: CHRONIC CHANGES OF ATROPHY AND MICROVASCULAR ISCHEMIA. NO ACUTE PROCESS. EVIDENCE OF ACUTE STROKE: NO. Knee X-Ray 01/15/18 18:46 IMPRESSION: NEGATIVE STUDY OF THE LEFT KNEE. NO RADIOGRAPHIC EVIDENCE OF ACUTE INJURY. Assessment & Plan - Diagnosis (1) Acute worsening of stage 3 chronic kidney disease Is this a current diagnosis for this admission?: Yes Plan: Patient comes dehydrated, several episodes of diarrhea yesterday that has improved today. Her BUN is 21 and creatinine 2.44, prior creatinine in December 08 0.14. Patient follows with Dr. Dewey Brannon and has known CKD stage III. Want to give IV fluids and reassess renal panel at midnight. Patient follows with Dr. Dewey Brannon who will be doing consults on Wednesday if the patient is still here. (2) Hyperkalemia Is this a current diagnosis for this admission?: Yes Plan: Potassium 5.7. Likely secondary to acute renal failure. Hopefully resolved with IV fluids, as I said before we will repeat renal panel at midnight. (3) Syncopal episodes Qualifiers: Syncope type: unspecified Qualified Code(s): R55 - Syncope and collapse Is this a current diagnosis for this admission?: Yes Plan: 2 syncopal episodes with one episode of seizure like activity I am suspecting is secondary to poor cerebral blood flow secondary to hypotension. IV fluids. No further intervention. (4) Acute diarrhea Is this a current diagnosis for this admission?: Yes Plan: Patient has been started on antibiotics which apparently precipitates diarrhea that has been resolving. Suspect diarrhea secondary to antibiotic use, doubt C. difficile or bacterial diarrhea, C. difficile and stool cultures ordered in the ED. No active intervention. (5) Hypercalcemia Is this a current diagnosis for this admission?: Yes Plan: Calcium 12.5, had these elevated calcium in the past, will the patient will repeat this value. I am sending ionized calcium, unfortunately PTH levels has not been found in EHR other than PTHrp to send and nobody answers in the laboratory.
[2018-01-16 02:32] LABS: ABSOLUTE BASOPHILS # (AUTO) 0.1 10^3/uL (0.0-0.2); ABSOLUTE LYMPHOCYTES (AUTO) 2.4 10^3/uL (0.5-4.7); ABSOLUTE MONOCYTES (AUTO) 0.5 10^3/uL (0.1-1.4); BASOPHILS % (AUTO) 0.6 % (0-2); EOSINOPHILS % (AUTO) 0.2 % (0-6); HEMATOCRIT 29.9 % (36.0-47.0); LYMPHOCYTES % (AUTO) 26.8 % (13-45); MEAN CORPUSCULAR HEMOGLOBIN 32.4 pg (27.0-33.4); MEAN CORPUSCULAR HGB CONC 34.5 g/dL (32.0-36.0); MEAN CORPUSCULAR VOLUME 94 fl (80-97); MONOCYTES % (AUTO) 5.4 % (3-13); PLATELET COUNT 278 10^3/uL (150-450); RED BLOOD COUNT 3.18 10^6/uL (3.72-5.28); RED CELL DISTRIBUTION WIDTH 12.8 % (11.5-14.0); TOTAL CELLS COUNTED % (AUTO) 100 %; WHITE BLOOD COUNT 8.9 10^3/uL (4.0-10.5)
[2018-01-16 02:53] LABS: HEMOGLOBIN 10.3 g/dL (12.0-15.5)
[2018-01-16 02:54] LABS: ANION GAP 16 (5-19); BLOOD UREA NITROGEN 23 mg/dL (7-20); CALCIUM 10.2 mg/dL (8.4-10.2); CARBON DIOXIDE 18 mmol/L (22-30); CHLORIDE 100 mmol/L (98-107); GLUCOSE 257 mg/dL (75-110)
[2018-01-16] MEDS: NORMAL SALINE 1000 ML 1,000 ML IV PRN (03:44)
[2018-01-16 03:47] LABS: POTASSIUM 4.5 mmol/L (3.6-5.0)
[2018-01-16] MEDS: HEPARIN SOD (PORCINE) 5,000 UNIT/ML 1 ML SYRINGE SUBCUT SCH ×3 (06:14→22:59)
[2018-01-17] MEDS: HEPARIN SOD (PORCINE) 5,000 UNIT/ML 1 ML SYRINGE SUBCUT SCH ×3 (05:56→21:44)
[2018-01-17 06:34] LABS: ABSOLUTE EOSINOPHILS # (AUTO) 0.1 10^3/uL (0.0-0.6); ABSOLUTE LYMPHOCYTES (AUTO) 2.8 10^3/uL (0.5-4.7); ABSOLUTE MONOCYTES (AUTO) 0.3 10^3/uL (0.1-1.4); ABSOLUTE NEUT (AUTO) 2.5 10^3/uL (1.7-8.2); BASOPHILS % (AUTO) 0.8 % (0-2); EOSINOPHILS % (AUTO) 2.1 % (0-6); HEMATOCRIT 29.1 % (36.0-47.0); HEMOGLOBIN 10.1 g/dL (12.0-15.5); LYMPHOCYTES % (AUTO) 47.6 % (13-45); MEAN CORPUSCULAR HEMOGLOBIN 32.5 pg (27.0-33.4); MEAN CORPUSCULAR HGB CONC 34.9 g/dL (32.0-36.0); MEAN CORPUSCULAR VOLUME 93 fl (80-97); MONOCYTES % (AUTO) 5.6 % (3-13); PLATELET COUNT 282 10^3/uL (150-450); RED BLOOD COUNT 3.12 10^6/uL (3.72-5.28); RED CELL DISTRIBUTION WIDTH 12.9 % (11.5-14.0); SEGMENTED NEUTROPHILS % (AUTO) 43.9 % (42-78); TOTAL CELLS COUNTED % (AUTO) 100 %; WHITE BLOOD COUNT 5.8 10^3/uL (4.0-10.5)
[2018-01-17 06:46] LABS: ANION GAP 13 (5-19); BLOOD UREA NITROGEN 16 mg/dL (7-20); CALCIUM 10.1 mg/dL (8.4-10.2); CARBON DIOXIDE 19 mmol/L (22-30); CHLORIDE 106 mmol/L (98-107); GLUCOSE 174 mg/dL (75-110); POTASSIUM 4.5 mmol/L (3.6-5.0); SODIUM 137.8 mmol/L (137-145)
--- NOTE | 2018-01-17 16:49 | PDOC PROGRESS REPORT ---
Subjective Progress Note for:: 01/16/18 Subjective:: The patient is resting comfortably. No new complaints. Reason For Visit: ACUTE IN CKD3, HYPERKALEMIA, HYPERCALCEMIA Physical Exam Vital Signs: Temp Pulse Resp BP Pulse Ox 97.9 F 82 17 119/96 H 100 01/17/18 11:33 01/17/18 11:33 01/17/18 11:33 01/17/18 11:33 01/17/18 11:33 Intake & Output 01/16/18 01/17/18 01/18/18 06:59 06:59 06:59 Intake Total 793 2030 Balance 793 2030 Weight 57.8 kg General appearance: PRESENT: no acute distress, other - The patient appears elderly, weak, and frail. Respiratory exam: PRESENT: other - No increased work of breathing.. ABSENT: rales, rhonchi, wheezes Cardiovascular exam: PRESENT: RRR. ABSENT: gallop, rubs, systolic murmur Pulses: PRESENT: other - Diminished distal pulses. GI/Abdominal exam: PRESENT: normal bowel sounds, soft. ABSENT: distended, hernia, mass, organolmegaly, tenderness Musculoskeletal exam: PRESENT: normal inspection. ABSENT: deformity, dislocation, tenderness Neurological exam: PRESENT: alert, awake, oriented to person, oriented to place , oriented to time, oriented to situation, CN II-XII grossly intact. ABSENT: motor sensory deficit Psychiatric exam: PRESENT: appropriate affect, normal mood Skin exam: PRESENT: dry, intact, warm Results Laboratory Results: 01/17/18 05:55 01/17/18 05:55 01/17/18 01/17/18 05:55 05:55 WBC 5.8 RBC 3.12 L Hgb 10.1 L Hct 29.1 L MCV 93 MCH 32.5 MCHC 34.9 RDW 12.9 Plt Count 282 Seg Neutrophils % 43.9 Lymphocytes % 47.6 H Monocytes % 5.6 Eosinophils % 2.1 Basophils % 0.8 Absolute Neutrophils 2.5 Absolute Lymphocytes 2.8 Absolute Monocytes 0.3 Absolute Eosinophils 0.1 Absolute Basophils 0.0 Sodium 137.8 Potassium 4.5 Chloride 106 Carbon Dioxide 19 L Anion Gap 13 BUN 16 Creatinine 1.26 H Est GFR ( Amer) 51 L Est GFR (Non-Af Amer) 42 L Glucose 174 H Calcium 10.1 Impressions: Chest X-Ray 01/15/18 18:28 IMPRESSION: NO ACUTE RADIOGRAPHIC FINDING IN THE CHEST. Head CT 01/15/18 18:43 IMPRESSION: CHRONIC CHANGES OF ATROPHY AND MICROVASCULAR ISCHEMIA. NO ACUTE PROCESS. EVIDENCE OF ACUTE STROKE: NO. Knee X-Ray 01/15/18 18:46 IMPRESSION: NEGATIVE STUDY OF THE LEFT KNEE. NO RADIOGRAPHIC EVIDENCE OF ACUTE INJURY. Assessment & Plan - Diagnosis (1) Acute renal failure superimposed on stage 3 chronic kidney disease Is this a current diagnosis for this admission?: Yes Plan: Due to volume depletion from GI losses. Creatinine is declining with Iv fluids. Monitor renal status and electrolytes. (2) Acute diarrhea Is this a current diagnosis for this admission?: Yes Plan: Resolving. (3) Hypercalcemia Is this a current diagnosis for this admission?: Yes Plan: Resolved. (4) Hyperkalemia Is this a current diagnosis for this admission?: Yes Plan: Resolved. (5) Syncopal episodes Qualifiers: Syncope type: unspecified Qualified Code(s): R55 - Syncope and collapse Is this a current diagnosis for this admission?: Yes Plan: Likely due to volume depletion and possibly vasovagal reflex associated with diarrhea, but will check echocardiogram to rule out cardiac cause. (6) Volume depletion, gastrointestinal loss Is this a current diagnosis for this admission?: Yes Plan: IV Fluids. Diarrhea appears to have stopped. - Time Time Spent with patient: 25-34 minutes Medications reviewed and adjusted accordingly: Yes
--- NOTE | 2018-01-17 16:55 | PDOC PROGRESS REPORT ---
Subjective Progress Note for:: 01/17/18 Subjective:: The patient is resting comfortably. No new complaints. Reason For Visit: ACUTE IN CKD3, HYPERKALEMIA, HYPERCALCEMIA Physical Exam Vital Signs: Temp Pulse Resp BP Pulse Ox 97.9 F 82 17 119/96 H 100 01/17/18 11:33 01/17/18 11:33 01/17/18 11:33 01/17/18 11:33 01/17/18 11:33 Intake & Output 01/16/18 01/17/18 01/18/18 06:59 06:59 06:59 Intake Total 793 2030 Balance 793 2030 Weight 57.8 kg General appearance: PRESENT: no acute distress, cooperative, other - The patient looks quite a bit brighter today. No new complaints. Respiratory exam: PRESENT: other - No increased work of breathing.. ABSENT: rales, rhonchi, wheezes Cardiovascular exam: PRESENT: RRR. ABSENT: gallop, rubs, tachycardia GI/Abdominal exam: PRESENT: normal bowel sounds, soft. ABSENT: distended, hernia, mass, organolmegaly, tenderness Extremities exam: ABSENT: clubbing, pedal edema, tenderness Musculoskeletal exam: PRESENT: normal inspection. ABSENT: deformity, dislocation, tenderness Neurological exam: PRESENT: alert, awake, oriented to person, oriented to place , oriented to time, oriented to situation, CN II-XII grossly intact. ABSENT: motor sensory deficit Psychiatric exam: PRESENT: appropriate affect, normal mood Skin exam: PRESENT: dry, intact, warm Results Laboratory Results: 01/17/18 05:55 01/17/18 05:55 01/17/18 01/17/18 05:55 05:55 WBC 5.8 RBC 3.12 L Hgb 10.1 L Hct 29.1 L MCV 93 MCH 32.5 MCHC 34.9 RDW 12.9 Plt Count 282 Seg Neutrophils % 43.9 Lymphocytes % 47.6 H Monocytes % 5.6 Eosinophils % 2.1 Basophils % 0.8 Absolute Neutrophils 2.5 Absolute Lymphocytes 2.8 Absolute Monocytes 0.3 Absolute Eosinophils 0.1 Absolute Basophils 0.0 Sodium 137.8 Potassium 4.5 Chloride 106 Carbon Dioxide 19 L Anion Gap 13 BUN 16 Creatinine 1.26 H Est GFR ( Amer) 51 L Est GFR (Non-Af Amer) 42 L Glucose 174 H Calcium 10.1 Impressions: Chest X-Ray 01/15/18 18:28 IMPRESSION: NO ACUTE RADIOGRAPHIC FINDING IN THE CHEST. Head CT 01/15/18 18:43 IMPRESSION: CHRONIC CHANGES OF ATROPHY AND MICROVASCULAR ISCHEMIA. NO ACUTE PROCESS. EVIDENCE OF ACUTE STROKE: NO. Knee X-Ray 01/15/18 18:46 IMPRESSION: NEGATIVE STUDY OF THE LEFT KNEE. NO RADIOGRAPHIC EVIDENCE OF ACUTE INJURY. Assessment & Plan - Diagnosis (1) Acute renal failure superimposed on stage 3 chronic kidney disease Is this a current diagnosis for this admission?: Yes Plan: Creatinine continues to decline towards the patient's baseline creatinine. (2) Acute diarrhea Is this a current diagnosis for this admission?: Yes Plan: Resolved. Only one stool yesterday. (3) Hypercalcemia Is this a current diagnosis for this admission?: Yes Plan: Resolved. (4) Hyperkalemia Is this a current diagnosis for this admission?: Yes Plan: Resolved. (5) Syncopal episodes Qualifiers: Syncope type: unspecified Qualified Code(s): R55 - Syncope and collapse Is this a current diagnosis for this admission?: Yes Plan: Echo report is pending. Rule out cardiac cause of syncope. Pt may discharge tomorrow if negative. (6) Volume depletion, gastrointestinal loss Is this a current diagnosis for this admission?: Yes Plan: Stop IV fluids. Monitor. (7) Weakness Is this a current diagnosis for this admission?: Yes Plan: PT/OT eval and treat. - Time Time Spent with patient: 25-34 minutes Anticipated discharge: Home
[2018-01-17] MEDS: NORMAL SALINE 1000 ML 1,000 ML IV PRN (19:49)
[2018-01-18] MEDS: HEPARIN SOD (PORCINE) 5,000 UNIT/ML 1 ML SYRINGE SUBCUT SCH ×2 (05:19→14:24)
[2018-01-18] MEDS ORDERED: HYDRALAZINE HCL INJ/PF 20 MG/1 ML SDV IV PRN (16:10)
--- NOTE | 2018-01-18 17:11 | XCELERA REPORT ---
[address] [address] Transthoracic Echocardiogram Report Name: SOY WATTS Age: 72 yrs Gender: Female : 1945 Patient Status: Inpatient Patient Location: [address] [place] [address] Study Date: 01/18/2018 02:49 PM Procedure: A complete two-dimensional transthoracic echocardiogram was performed (2D, M-mode, spectral and color flow Doppler). The study was technically difficult with many images being suboptimal in quality. Reason For Study: syncope Ordering Physician: KERVIN LARIOS Performed By: Neyda Florentino Interpretation Summary The left ventricular ejection fraction is normal. The left ventricle is grossly normal size. There is borderline concentric left ventricular hypertrophy. Doppler measurements suggest pseudonormalized left ventricular relaxation, which is associated with grade II/IV or mild to moderate diastolic dysfunction Wall motion cannot be accurately commented on, but no definite regional wall motion abnormalities noted. The right ventricle is not well visualized secondary to technical limitations The right atrium is normal in size The left atrial size is normal. There is a trace amount of mitral regurgitation There is no mitral valve stenosis. No aortic regurgitation is present. There is no aortic valve stenosis There is no tricuspid stenosis. No tricuspid regurgitation. The inferior vena cava appeared normal and decreased > 50% with respiration (RAP 5-10 mmHg) The aortic root is not well visualized but is probably normal size. There is no pericardial effusion. May consider mobile cardiac telemetry monitoring (MCT) for ruling out transient cardiac dysrhythmias MMode/2D Measurements & Calculations IVSd: 0.83 cm LVIDd: 4.0 cm FS: 35.1 % Ao root diam: 2.4 cm LVIDs: 2.6 cm EDV(Teich): 70.4 ml Ao root area: 4.7 cm2 LVPWd: 0.81 cm ESV(Teich): 24.7 ml EF(Teich): 64.9 % Doppler Measurements & Calculations MV E max nato: MV dec slope: Ao V2 max: LV V1 max P.7 cm/sec 164.6 cm/sec 8.9 mmHg MV A max nato: 494.4 cm/sec2 Ao max PG: LV V1 max: 120.7 cm/sec MV dec time: 0.20 sec10.8 mmHg 148.9 cm/sec MV E/A: 0.80 PA V2 max: 110.3 cm/sec PA max P.9 mmHg Left Ventricle The left ventricle is grossly normal size. There is borderline concentric left ventricular hypertrophy. The left ventricular ejection fraction is normal. Doppler measurements suggest pseudonormalized left ventricular relaxation, which is associated with grade II/IV or mild to moderate diastolic dysfunction. Wall motion cannot be accurately commented on, but no definite regional wall motion abnormalities noted. Right Ventricle The right ventricle is not well visualized secondary to technical limitations. Atria The right atrium is normal in size. The left atrial size is normal. Mitral Valve The mitral valve is grossly normal. There is no mitral valve stenosis. There is a trace amount of mitral regurgitation. Aortic Valve The aortic valve opens well. The aortic valve is not well visualized secondary to technical limitations. There is no aortic valve stenosis. No aortic regurgitation is present. Tricuspid Valve The tricuspid valve is not well visualized secondary to technical limitations. There is no tricuspid stenosis. No tricuspid regurgitation. Pulmonic Valve The pulmonic valve is not well visualized. Great Vessels The aortic root is not well visualized but is probably normal size. The inferior vena cava appeared normal and decreased > 50% with respiration (RAP 5-10 mmHg). Effusions There is no pericardial effusion. Incidental Findings May consider mobile cardiac telemetry monitoring (MCT) for ruling out transient AFIB. : KERVIN LARIOS > Magui Harvey
--- NOTE | 2018-01-18 17:44 | PDOC DISCHARGE SUMMARY ---
General - Admit/Disc Date/PCP Admission Date/Primary Care Provider: 01/15/18 20:25 DAYDAY HUTTON PA-C Discharge Date: 01/18/18 - Discharge Diagnosis (1) Acute diarrhea Is this a current diagnosis for this admission?: Yes (2) Acute kidney injury (nontraumatic) Is this a current diagnosis for this admission?: Yes (3) Dehydration Is this a current diagnosis for this admission?: Yes (4) Hyperkalemia Is this a current diagnosis for this admission?: Yes (5) Syncopal episodes Is this a current diagnosis for this admission?: Yes (6) Volume depletion, gastrointestinal loss Is this a current diagnosis for this admission?: Yes - Additional Information Discharge Diet: As Tolerated Discharge Activity: Activity As Tolerated Home Medications: Clopidogrel Bisulfate [Plavix 75 mg Tablet] 75 mg PO DAILY 10/15/11 Metformin HCl [Glucophage 1000 mg Tablet] 1,000 mg PO BID 10/15/11 Cyclobenzaprine HCl [Flexeril 10 mg Tablet] 10 mg PO TID PRN 02/25/12 Donepezil HCl [Aricept Odt] 10 mg PO QHS 02/25/12 Mirtazapine [Remeron 15 mg Tablet] 15 mg PO QHS 02/25/12 Atorvastatin Calcium 40 mg PO DAILY 01/15/18 Cyproheptadine HCl 4 mg PO TID 01/15/18 Furosemide [Lasix 20 mg Tablet] 20 mg PO QAM PRN 01/15/18 Linaclotide [Linzess 145 Mcg Capsule] 145 mcg PO DAILY 01/15/18 Losartan Potassium 50 mg PO DAILY 01/15/18 Magnesium Oxide [Mag-Oxide Magnesium] 400 mg PO TID 01/15/18 Sitagliptin Phosphate [Januvia 50 mg Tablet] 50 mg PO DAILY 01/15/18 History of Present Illness Patient complains of: Weakness, diarrhea and passing out History of Present Illness: SOY WATTS is a 72 year old female Patient was at home and she remembers going to the bathroom, suddenly had lightheadedness and she blacked out, as per the ED attending notes that she had 2 syncopal episodes. Her sister was with her but she is not at the bedside, other family members tells me that sister start her on the chair when suddenly she rolled her eyes to the back and was shaking, apparently did not have urinary or fecal incontinence. Apparently patient had 10-20 bowel movements since yesterday, denies having diarrhea today. Has been having minimal p.o. intake as per notes patient tells me that she thought she was drinking enough water. Found with acute kidney injury in the setting of CKD stage III with hyperkalemia with potassium 5.7. CT of the head negative. Chest x-ray negative. Left knee x-ray negative. Hypercalcemic with calcium 12.5. At the time of my evaluation patient was back to her baseline after IV fluids given. Hospital Course Hospital Course: Patient was admitted with dizziness and apparent syncopal episode. She was found to be dehydrated and in acute renal failure likely secondary to prerenal is azotemia on initial admission. She was given intravenous fluids with marked improvement in her kidney function. Electrolyte abnormalities including hypocalcemia and hypokalemia likely secondary to dehydration as well as to syncope. Patient Lasix as well as Cozaar were held although I have requested that she can resume Cozaar as her blood pressure is now poorly controlled. She was monitored on telemetry floor with no evidence of any arrhythmias and she had a two-dimensional echocardiogram done today which reveals no significant findings. I have requested that she follow-up with Dr. Harvey for an outpatient ambulatory telemetry monitoring. Metformin was also on hold due to her kidney function but this can be restarted in a.m. Patient also had diarrhea which was thought to have contributed to volume depletion. Cultures done including C. difficile serology was negative. Physical Exam Vital Signs: Temp Pulse Resp BP Pulse Ox 98.5 F 76 16 175/66 H 100 01/18/18 15:40 01/18/18 15:40 01/18/18 15:40 01/18/18 15:40 01/18/18 15:40 Intake & Output 01/17/18 01/18/18 01/19/18 06:59 06:59 06:59 Intake Total 2029 564 1620 Output Total 200 Balance 2029 364 1620 Weight 57.8 kg 57.5 kg General appearance: PRESENT: no acute distress Head exam: PRESENT: atraumatic Mouth exam: PRESENT: moist Neck exam: ABSENT: carotid bruit, JVD, lymphadenopathy, thyromegaly Cardiovascular exam: PRESENT: RRR. ABSENT: diastolic murmur, rubs, systolic murmur GI/Abdominal exam: PRESENT: normal bowel sounds, soft. ABSENT: distended, guarding, mass, organolmegaly, rebound, tenderness Rectal exam: PRESENT: deferred Neurological exam: PRESENT: alert, awake, oriented to person, oriented to place , oriented to time, oriented to situation, CN II-XII grossly intact. ABSENT: motor sensory deficit Skin exam: PRESENT: dry, intact, warm. ABSENT: cyanosis, rash Results Laboratory Results: 01/17/18 05:55 01/17/18 05:55 Impressions: Chest X-Ray 01/15/18 18:28 IMPRESSION: NO ACUTE RADIOGRAPHIC FINDING IN THE CHEST. Head CT 01/15/18 18:43 IMPRESSION: CHRONIC CHANGES OF ATROPHY AND MICROVASCULAR ISCHEMIA. NO ACUTE PROCESS. EVIDENCE OF ACUTE STROKE: NO. Knee X-Ray 01/15/18 18:46 IMPRESSION: NEGATIVE STUDY OF THE LEFT KNEE. NO RADIOGRAPHIC EVIDENCE OF ACUTE INJURY. Qualifiers - * PATIENT BEING DISCHARGED WITH ANY OF THE FOLLOWING DIAGNOSIS: No Plan Time Spent: Less than 30 Minutes
[2018-01-18 17:45] VITALS: BP 163/83
== END 2018-01-18 18:57 | disposition home or self-care (01) | DRG 684 ==
LOC: ER 18:00 → EH 20:25 → 4N 21:45
PROVIDERS: ADMIT Internal Medicine; ATTEND Internal Medicine
DX: N17.9 Acute kidney failure, unspecified (principal); E86.0 Dehydration; E87.5 Hyperkalemia; R55 Syncope and collapse; E86.9 Volume depletion, unspecified; R19.7 Diarrhea, unspecified; W18.39XA Other fall on same level, initial encounter; Y92.012 Bathroom of single-family (private) house as the place of occurrence of the external cause; N18.3 Chronic kidney disease, stage 3 (moderate); E78.00 Pure hypercholesterolemia, unspecified; E11.22 Type 2 diabetes mellitus with diabetic chronic kidney disease; M19.90 Unspecified osteoarthritis, unspecified site; F32.9 Major depressive disorder, single episode, unspecified; D63.1 Anemia in chronic kidney disease; I12.9 Hypertensive chronic kidney disease with stage 1 through stage 4 chronic kidney disease, or unspecified chronic kidney disease; E83.52 Hypercalcemia; Z79.899 Other long term (current) drug therapy; Z90.710 Acquired absence of both cervix and uterus; Z88.0 Allergy status to penicillin; Z87.891 Personal history of nicotine dependence; Z86.73 Personal history of transient ischemic attack (TIA), and cerebral infarction without residual deficits
CPT/HCPCS: 36415; 70450; 71045; 80048; 80053; 82330; 82803; 82962; 83735; 84484; 85025; 93005; 93010; 93306; 99285; G8978-GP; G8979-GP; G8987-GO; G8988-GO; J0360; J1644; J7030

== ENCOUNTER → 2018-06-06 | Outpatient (CLI) | payer MEDICARE, MEDICAID ==
[2018-06-06 16:19] LABS: HEMATOCRIT 33.5 % (36.0-47.0); HEMOGLOBIN 11.3 g/dL (12.0-15.5); MEAN CORPUSCULAR HEMOGLOBIN 31.4 pg (27.0-33.4); MEAN CORPUSCULAR HGB CONC 33.8 g/dL (32.0-36.0); MEAN CORPUSCULAR VOLUME 93 fl (80-97); PLATELET COUNT 363 10^3/uL (150-450); RED CELL DISTRIBUTION WIDTH 12.9 % (11.5-14.0); WHITE BLOOD COUNT 5.3 10^3/uL (4.0-10.5)
[2018-06-06 16:22] LABS: APPEARANCE,URINE CLEAR; BILIRUBIN,URINE NEGATIVE (NEGATIVE); COLOR,URINE STRAW; GLUCOSE, URINE NEGATIVE (NEGATIVE); KETONES,URINE NEGATIVE (NEGATIVE); LEUKOCYTE ESTERASE,URINE NEGATIVE (NEGATIVE); NITRITE,URINE NEGATIVE (NEGATIVE); PROTEIN,URINE NEGATIVE (NEGATIVE); URINE SPECIFIC GRAVITY 1.005; UROBILINOGEN,URINE NEGATIVE mg/dL (<2.0)
[2018-06-06 16:39] LABS: ANION GAP 12 (5-19); BLOOD UREA NITROGEN 20 mg/dL (7-20); CALCIUM 10.3 mg/dL (8.4-10.2); CARBON DIOXIDE 24 mmol/L (22-30); CHLORIDE 99 mmol/L (98-107); GLUCOSE 160 mg/dL (75-110); SODIUM 135.2 mmol/L (137-145)
== END ==
LOC: OD 14:47
PROVIDERS: ATTEND Physician Assistant Medical
DX: E11.22 Type 2 diabetes mellitus with diabetic chronic kidney disease (principal); N18.2 Chronic kidney disease, stage 2 (mild); E87.1 Hypo-osmolality and hyponatremia
CPT/HCPCS: 36415; 80048; 81001; 83735; 85027

== ENCOUNTER → 2018-06-21 | Outpatient (CLI) | payer MEDICARE, MEDICAID ==
--- NOTE | 2018-06-21 14:56 | RADIOLOGY REPORT (SQ) ---
EXAM DESCRIPTION: CAROTID DOPPLER COMPLETED DATE/TIME: 06/21/2018 1:59 pm REASON FOR STUDY: PAD Z12.31 ENCNTR SCREEN MAMMOGRAM FOR MALIGNANT NEOPLASM OF GERALD I73.9 PERIPHERA L VASCULAR DISEASE, UNSPECIFIED COMPARISON: CT brain 01/15/2018 TECHNIQUE: Grayscale ultrasound, Doppler velocity and spectra, and color Doppler images acquired of the extra-cranial carotid and vertebral arteries. Images stored on PACS. LIMITATIONS: None. FINDINGS: RIGHT CAROTID CCA Velocities: Within normal limits. Right common carotid artery peak systolic velocity 0.5 m/sec ICA Velocities Peak systolic 0.55 m/s. End diastolic 0.17 m/s. Proximal ICA/CCA peak systolic ratio 2.3. Spectra normal. No significant plaque. LEFT CAROTID CCA Velocities: Within normal limits. Left common carotid artery peak systolic velocity 0.56 m/sec ICA Velocities Peak systolic 1.1 m/s. End diastolic 0.35 m/s. Proximal ICA/CCA peak systolic ratio 1.6. Spectra normal. No significant plaque. VERTEBRAL ARTERIES: Antegrade flow. Normal waveforms. SUBCLAVIAN ARTERIES: Not evaluated OTHER: No other significant finding. IMPRESSION: No flow significant stenosis at the carotid bifurcations. COMMENT: Quality ID #[id number]: Velocity criteria are extrapolated from the diameter data as defined by t he Society of Radiologists in Ultrasound Consensus Conference. Radiology 2003: 229; 340-346. TECHNICAL DOCUMENTATION: JOB ID: [id number] [employer]- All Rights Reserved Reading location - IP/workstation name: [email or web address]
--- NOTE | 2018-06-21 15:00 | XCELERA REPORT ---
[address] [address] Lower Extremity Arterial Evaluation Name: SOY WATTS Age: 73 yrs Gender: Female : 1945 Patient Status: Outpatient Patient Location: [facility] Study Date: 06/21/2018 12:05 PM Procedure: A color flow and duplex scan of the lower extremity arteries was performed bilaterally with velocity and waveform anaylsis. Reason For Study: PAD Ordering Physician: SERAFIN HEADLEY Performed By: Neyda Florentino Measurements and Calculations Right Left Prox PFA PSV 98.8 74.9 cm/sec Prox SFA PSV 72.8 92.6 cm/sec Mid SFA PSV 68.6 78.8 cm/sec Dist SFA PSV 76.3 74.5 cm/sec Prox Pop A PSV 64.7 cm/sec Dist Pop A PSV 74.5 cm/sec Prox WILLIAMS PSV 23.9 cm/sec Mid WILLIAMS PSV 72.8 cm/sec Prox CARTON MAKING MACHINIST PSV 61.2 cm/sec Mid CARTON MAKING MACHINIST PSV 74.6 cm/sec Right Side Arterial Evaluation Normal velocity and triphasic waveforms noted from the Common Femoral artery to the infrageniculate vessels . Ankle Brachial index not obtained due to discomfort. Left Side Arterial Evaluation Normal velocity and triphasic waveforms noted from the Common Femoral artery to the infrageniculate vessels . Ankle Brachial index not obtained due to discomfort. Interpretation Summary No hemodynamically significant lesions in the bilateral lower extremities, on duplex imaging, at rest. : SERAFIN HEADLEY > Greg Ray
== END ==
LOC: SP 10:36
PROVIDERS: ATTEND Family Medicine
DX: I73.9 Peripheral vascular disease, unspecified (principal)
CPT/HCPCS: 93880; 93925

== ENCOUNTER → 2018-09-14 | Outpatient (CLI) | payer MEDICARE, MEDICAID ==
--- NOTE | 2018-09-14 14:41 | WOMENS IMAGING REPORT ---
EXAM DESCRIPTION: BILAT SCREENING MAMMO W/CAD COMPLETED DATE/TIME: 09/14/2018 2:25 pm REASON FOR STUDY: Z12.31 ROUTINE BILATERAL SCREENING Z12.31 ENCNTR SCREEN MAMMOGRAM FOR MALIGNANT N EOPLASM OF GERALD COMPARISON: Multiple since 2008 TECHNIQUE: Standard craniocaudal and mediolateral oblique views of each breast recorded using Next 1 Interactivea l acquisition. LIMITATIONS: None. FINDINGS: Findings present which are benign by mammographic criteria. No suspicious masses, calcifi cations or architectural distortion. Pertinent benign findings: Stable benign bilateral calcifications Read with the assistance of CAD. .[facility] - R2 Senior Site Manager Version 9.2 Benign mammographic findings may include one or more of the following: Smooth masses, popcorn/rim/co arse calcifications, asymmetries, post-procedure changes, and lesions with long-standing stability. IMPRESSION: BENIGN MAMMOGRAPHIC FINDINGS. BIRADS 2 BREAST DENSITY: b. There are scattered areas of fibroglandular density. BIRAD: 2 BENIGN FINDING(S) RECOMMENDATION: ROUTINE SCREENING COMMENT: The patient has been notified of the results by letter per MQSA requirements. Additional no tification policies are in place for contacting patient with suspicious or incomplete findings. Quality ID #225: The [employer] recommends an annual screening mammogram for women aged 40 years or over. This facility utilizes a reminder system to ensure that all patients receive reminder letters, and/or direct phone calls for appointments. This includes reminders for routine scr eening mammograms, diagnostic mammograms, or other Breast Imaging Interventions when appropriate. Th is patient will be placed in the appropriate reminder system. TECHNICAL DOCUMENTATION: FINDING NUMBER: (1) ASSESSMENT: (1) JOB ID: [id number] [employer]- All Rights Reserved Reading location - IP/workstation name: [email or web address]
== END ==
LOC: WI 14:07
PROVIDERS: ATTEND Family Medicine
DX: Z12.31 Encounter for screening mammogram for malignant neoplasm of breast (principal)
CPT/HCPCS: 77067

== ENCOUNTER 2018-10-07 01:21 | Emergency (ER) | payer MEDICARE, MEDICAID ==
[2018-10-07] MEDS ORDERED: METHYLPREDNISOLONE INJ 125 MG/2 ML SDV IV ONE (02:28)
[2018-10-07] MEDS ORDERED: NORMAL SALINE 250 ML IV PRN (02:29)
--- NOTE | 2018-10-07 02:29 | ER Document Report ---
ED General - General Chief Complaint: Swelling of Tongue Stated Complaint: SWOLLEN TONGUE Time Seen by Provider: 10/07/18 02:27 Primary Care Provider: SERAFIN MEDEL DO [Primary Care Provider] - Follow up as needed Notes: 73-year-old Afro-Monegasque female with swelling of her tongue. States that she noticed some tingling to before she went to bed. Woke up with tongue completely swollen and having a hard time breathing. EMS was called. IV was established. Epinephrine and Benadryl was given in route. Patient feeling better at this time. Able to swallow now. Denies any chest pain or other symptoms at this t mckayla. Patient states that she was recently started on telmisartan TRAVEL OUTSIDE OF THE [place] IN LAST 30 DAYS: No - HPI Onset: Just prior to arrival Onset/Duration: Sudden Quality of pain: No pain Severity: Severe Pain Level: 0 - Related Data Allergies/Adverse Reactions: penicillin G [Penicillin G] Allergy (Severe, Verified 10/07/18 03:57) Hives Past Medical History - General Information source: Patient, [facility] Records - Social History Smoking Status: Never Smoker Chew tobacco use (# tins/day): No Frequency of alcohol use: None Drug Abuse: None Family History: Reviewed & Not Pertinent Patient has suicidal ideation: No Patient has homicidal ideation: No - Past Medical History Cardiac Medical History: Reports: Hx Hypercholesterolemia, Hx Hypertension Neurological Medical History: Reports: Hx Cerebrovascular Accident, Hx Seizures Endocrine Medical History: Reports: Hx Diabetes Mellitus Type 2 Renal/ Medical History: Denies: Hx Peritoneal Dialysis Musculoskeletal Medical History: Reports Hx Arthritis Psychiatric Medical History: Reports: Hx Depression Past Surgical History: Reports: Hx Hysterectomy - Immunizations Hx Diphtheria, Pertussis, Tetanus Vaccination: No Hx Pneumococcal Vaccination: 04/24/12 Review of Systems - Review of Systems Notes: Constitutional: denies: Chills, Diaphoresis, Fever, Malaise, Weakness EENT: denies: Eye discharge, Blurred vision, Tearing, Double vision, Nose congestion, Nose discharge, Throat swelling, Mouth pain and complaining of swelling to the tongue Cardiovascular: denies: Palpitations, Heart racing, Orthopnea, Dyspnea, Chest pain Respiratory: denies: Cough, Hurts to breathe, Wheezing, Shortness of breath Gastrointestinal: denies: Abdominal pain, Diarrhea, Nausea, Vomiting, Black stools, bright red blood in stool Genitourinary: denies: Burning, Dysuria, Discharge, Frequency, Flank pain, Hematuria Musculoskeletal: denies: Joint pain, Joint swelling, Muscle pain, Muscle stiffness, back pain Hematologic/Lymphatic: denies: Anemia, Easy bleeding, Easy bruising, Blood clots Neurological/Psychological: denies: Confusion, Dementia, Depression, Loss of consciousness Skin: No lesions, no masses, no skin breakdown, no abscesses Physical Exam - Vital signs Vitals: Temp Resp Pulse Ox 98.7 F 17 100 10/07/18 01:27 10/07/18 01:27 10/07/18 01:27 Interpretation: Normal - General General appearance: Appears well, Alert - HEENT Head: Normocephalic, Atraumatic Eyes: Normal Pupils: PERRL Notes: Patient has large swollen angioedema appearing tongue. - Respiratory Respiratory status: No respiratory distress Chest status: Nontender Breath sounds: Normal Chest palpation: Normal - Cardiovascular Rhythm: Regular Heart sounds: Normal auscultation Murmur: No - Abdominal Inspection: Normal Distension: No distension Bowel sounds: Normal Tenderness: Nontender Organomegaly: No organomegaly - Back Back: Normal, Nontender - Extremities General upper extremity: Normal inspection, Nontender, Normal color, Normal ROM, Normal temperature General lower extremity: Normal inspection, Nontender, Normal color, Normal ROM, Normal temperature, Normal weight bearing. No: Seven's sign - Neurological Neuro grossly intact: Yes Cognition: Normal Orientation: AAOx4 Karen Coma Scale Eye Opening: Spontaneous [place] Coma Scale Verbal: Oriented [place] Coma Scale Motor: Obeys Commands Karen Coma Scale Total: 15 Speech: Normal Motor strength normal: LUE, RUE, LLE, RLE Sensory: Normal - Psychological Associated symptoms: Normal affect, Normal mood - Skin Skin Temperature: Warm Skin Moisture: Dry Skin Color: Normal Course - Re-evaluation Re-evalutation: 10/07/18 02:54 Patient with angioedema of the tongue. Will start on Solu-Medrol, Benadryl, Pepcid. Epi was given. Patient is feeling better. Due to the concern for worsening angioedema I am going ahead and ordering FFP. We will keep close eye on the patient. I have instructed the patient to let us know if anything is getting worse. She knows that we will be observing for quite some time now. Patient may even require admission. 10/07/18 06:34 Patient's tongue is at least 50% or more improved. After her initial FFP does I do believe she is stable for discharge. I have advised her to not take the telmisartan. She needs to follow-up with Dr. Medel. Patient is talking in full sentences, rating her secretions and in no acute distress at this time. In my opinion patient is stable for discharge after her transfusion is complete. - Vital Signs Vital signs: Temp Pulse Resp BP Pulse Ox 98.2 F 82 17 138/70 H 97 10/07/18 06:17 10/07/18 05:11 10/07/18 06:15 10/07/18 06:15 10/07/18 06:15 Discharge - Discharge Clinical Impression: Angioedema Qualifiers: Encounter type: initial encounter Qualified Code(s): T78.3XXA - Angioneurotic edema, initial encounter Condition: Good Disposition: HOME, SELF-CARE Instructions: Angioedema ([facility]) Additional Instructions: Please make an appointment to follow-up with your primary care doctor. More than likely you have experienced angioedema of the tongue from your blood pressure medication called telmisartan. Please do not take that medicine or any of the other medications in that class of drugs such as losartan, candesartan, lisinopril, ramipril. You will need to discuss this with your primary care provider. In the event that you notice that your tongue is getting swollen again, you are having difficulty breathing or swallowing please call 911 or proceed immediately to the emergency department. Referrals: SERAFIN MEDEL DO [Primary Care Provider] - 10/07/18 6:36 am
[2018-10-07] MEDS ORDERED: FAMOTIDINE INJ/PF 20 MG/2 ML SDV IV ONE (02:30)
[2018-10-07] MEDS ORDERED: NORMAL SALINE 500 ML IV ONE (02:30)
[2018-10-07 08:32] VITALS: BP 133/71
== END 2018-10-07 09:05 | disposition home or self-care (01) ==
LOC: ER 01:21
DX: T78.3XXA Angioneurotic edema, initial encounter (principal); I10 Essential (primary) hypertension; E11.9 Type 2 diabetes mellitus without complications
CPT/HCPCS: 99285; 96361; 96374; 96375; 86900; 86901; 36415; 36430; P9017; J2930; J7050; J7040; S0028

== ENCOUNTER → 2018-12-13 | Outpatient (CLI) | payer MEDICARE, MEDICAID ==
[2018-12-13 14:09] LABS: HEMATOCRIT 31.3 % (36.0-47.0); HEMOGLOBIN 10.5 g/dL (12.0-15.5); MEAN CORPUSCULAR HEMOGLOBIN 31.8 pg (27.0-33.4); MEAN CORPUSCULAR HGB CONC 33.6 g/dL (32.0-36.0); MEAN CORPUSCULAR VOLUME 95 fl (80-97); PLATELET COUNT 305 10^3/uL (150-450); RED CELL DISTRIBUTION WIDTH 12.6 % (11.5-14.0); WHITE BLOOD COUNT 5.3 10^3/uL (4.0-10.5)
[2018-12-13 14:31] LABS: ANION GAP 13 (5-19); BLOOD UREA NITROGEN 21 mg/dL (7-20); CALCIUM 9.4 mg/dL (8.4-10.2); CARBON DIOXIDE 21 mmol/L (22-30); CHLORIDE 94 mmol/L (98-107); GLUCOSE 164 mg/dL (75-110); PHOSPHORUS 3.3 mg/dL (2.5-4.5); POTASSIUM 5.1 mmol/L (3.6-5.0)
[2018-12-13 15:15] LABS: APPEARANCE,URINE CLEAR; BILIRUBIN,URINE NEGATIVE (NEGATIVE); COLOR,URINE STRAW; GLUCOSE, URINE NEGATIVE (NEGATIVE); KETONES,URINE NEGATIVE (NEGATIVE); LEUKOCYTE ESTERASE,URINE NEGATIVE (NEGATIVE); NITRITE,URINE NEGATIVE (NEGATIVE); PROTEIN,URINE NEGATIVE (NEGATIVE); URINE SPECIFIC GRAVITY 1.006; UROBILINOGEN,URINE NEGATIVE mg/dL (<2.0)
== END ==
LOC: OD 13:30
PROVIDERS: ATTEND Physician Assistant Medical
DX: E11.22 Type 2 diabetes mellitus with diabetic chronic kidney disease (principal); N18.2 Chronic kidney disease, stage 2 (mild); E87.1 Hypo-osmolality and hyponatremia; D64.9 Anemia, unspecified
CPT/HCPCS: 36415; 80048; 81001; 83735; 83970; 84100; 85027

== ENCOUNTER → 2018-12-19 | Outpatient (CLI) | payer MEDICARE, MEDICAID ==
[2018-12-19 12:02] LABS: ANION GAP 12 (5-19); BLOOD UREA NITROGEN 22 mg/dL (7-20); CALCIUM 10.4 mg/dL (8.4-10.2); CARBON DIOXIDE 23 mmol/L (22-30); CHLORIDE 101 mmol/L (98-107); GLUCOSE 152 mg/dL (75-110); POTASSIUM 4.7 mmol/L (3.6-5.0)
== END ==
LOC: OD 10:12
PROVIDERS: ATTEND Physician Assistant Medical
DX: E87.1 Hypo-osmolality and hyponatremia (principal)
CPT/HCPCS: 36415; 80048

== ENCOUNTER → 2019-09-29 | Outpatient (CLI) | payer MEDICARE, MEDICAID ==
--- NOTE | 2019-10-03 09:09 | WOMENS IMAGING REPORT ---
EXAM DESCRIPTION: BILAT SCREENING MAMMO W/CAD IMAGES COMPLETED DATE/TIME: 09/29/2019 8:14 am REASON FOR STUDY: Z12.31 ENCOUNTER FOR SCREENING MAMMOGRAM FOR MALIGNANT NEOPLASM OF BREAST Z12.31 ENCNTR SCREEN MAMMOGRAM FOR MALIGNANT NEOPLASM OF GERALD COMPARISON: Multiple since 2008 EXAM PARAMETERS: Standard craniocaudal and mediolateral oblique views of each breast recorded using digital acquisition. Read with the assistance of CAD. .[facility] - [employer] Geomorphologist Version 9.2 LIMITATIONS: None. FINDINGS: Findings present which are benign by mammographic criteria. No suspicious masses, calcifi cations or architectural distortion. Pertinent benign findings: Benign calcifications bilaterally Benign mammographic findings may include one or more of the following: Smooth masses, popcorn/rim/co arse calcifications, asymmetries, post-procedure changes, and lesions with long-standing stability. IMPRESSION: BENIGN MAMMOGRAPHIC FINDINGS. BIRADS 2 BREAST DENSITY: b. There are scattered areas of fibroglandular density. BIRAD: ASSESSMENT: 2 BENIGN FINDING(S) RECOMMENDATION: ROUTINE SCREENING COMMENT: The patient has been notified of the results by letter per [place] requirements. Additional no tification policies are in place for contacting patient with suspicious or incomplete findings. Quality ID #225: The [place] [employer] recommends an annual screening mammogram for women aged 40 years or over. This facility utilizes a reminder system to ensure that all patients receive reminder letters, and/or direct phone calls for appointments. This includes reminders for routine scr eening mammograms, diagnostic mammograms, or other Breast Imaging Interventions when appropriate. Th is patient will be placed in the appropriate reminder system. TECHNICAL DOCUMENTATION: FINDING NUMBER: (1) ASSESSMENT: (1) JOB ID: [id number] 2010 [employer]- All Rights Reserved Reading location - IP/workstation name: [email or web address]
== END ==
LOC: WI 08:00
PROVIDERS: ATTEND Family Medicine
DX: Z12.31 Encounter for screening mammogram for malignant neoplasm of breast (principal)
CPT/HCPCS: 77067

== ENCOUNTER 2020-04-25 11:50 | Emergency (ER) | payer MEDICARE, MEDICAID ==
[2020-04-25] MEDS ORDERED: LEVETIRACETAM 1000 MG/NACL-ISO 1,000 MG/100 ML RTUPB IV ONE (12:02)
[2020-04-25 12:18] LABS: ABSOLUTE LYMPHOCYTES (AUTO) 1.3 10^3/uL (0.5-4.7); ABSOLUTE MONOCYTES (AUTO) 0.2 10^3/uL (0.1-1.4); ABSOLUTE NEUT (AUTO) 6.2 10^3/uL (1.7-8.2); BASOPHILS % (AUTO) 0.4 % (0-2); HEMATOCRIT 44.5 % (36.0-47.0); HEMOGLOBIN 14.1 g/dL (12.0-15.5); LYMPHOCYTES % (AUTO) 17.2 % (13-45); MEAN CORPUSCULAR HEMOGLOBIN 31.4 pg (27.0-33.4); MEAN CORPUSCULAR HGB CONC 31.8 g/dL (32.0-36.0); MEAN CORPUSCULAR VOLUME 99 fl (80-97); MONOCYTES % (AUTO) 2.3 % (3-13); PLATELET COUNT 236 10^3/uL (150-450); RED CELL DISTRIBUTION WIDTH 12.8 % (11.5-14.0); SEGMENTED NEUTROPHILS % (AUTO) 80.1 % (42-78); TOTAL CELLS COUNTED % (AUTO) 100 %; WHITE BLOOD COUNT 7.7 10^3/uL (4.0-10.5)
--- NOTE | 2020-04-25 12:33 | RADIOLOGY REPORT (SQ) ---
EXAM DESCRIPTION: CT HEAD WITHOUT IMAGES COMPLETED DATE/TIME: 04/25/2020 12:19 pm REASON FOR STUDY: facial droop, nonresponsive COMPARISON: None. TECHNIQUE: Axial images acquired through the brain without intravenous contrast. Images reviewed wi th bone, brain and subdural windows. Additional sagittal and coronal reconstructions were generated. Images stored on PACS. All CT scanners at this facility use dose modulation, iterative reconstruction, and/or weight based d osing when appropriate to reduce radiation dose to as low as reasonably achievable (ALARA). [facility]: Dose Right [facility]: CareDose [facility]: Dose Right [facility]: Teradose 4D [facility]: Smart NewHive RADIATION DOSE: CT Rad equipment meets quality standard of care and radiation dose reduction techniq ues were employed. CTDIvol: 53.2 mGy. DLP: 937 mGy-cm.mGy. LIMITATIONS: None. FINDINGS: VENTRICLES: Prominent. CEREBRUM: No masses. No hemorrhage. No midline shift. Areas of low density in the white matter mos t likely due to chronic micro-vascular ischemic change. No evidence for acute infarction. CEREBELLUM: No masses. No hemorrhage. No alteration of density. No evidence for acute infarction. EXTRAAXIAL SPACES: Age-related involutional change. No fluid collections. No masses. ORBITS AND GLOBE: No intra- or extraconal masses. Normal contour of globe without masses. CALVARIUM: No fracture. PARANASAL SINUSES: No fluid or mucosal thickening. SOFT TISSUES: No mass or hematoma. OTHER: No other significant finding. IMPRESSION: CHRONIC CHANGES OF ATROPHY AND MICROVASCULAR ISCHEMIA. NO ACUTE PROCESS. EVIDENCE OF ACUTE STROKE: NO. COMMENT: Pertinent positive or negative findings of the imaging study reported as a CRITICAL EXAM luana العلي DO at12:27 on 04/25/2020. Category of Critical Exam: Stroke alert. TECHNICAL DOCUMENTATION: JOB ID: [id number] Quality ID # [id number]: Final reports with documentation of one or more dose reduction techniques (e.g., Au tomated exposure control, adjustment of the mA and/or kV according to patient size, use of iterative reconstruction technique) 2010 [employer]- All Rights Reserved Reading location - IP/workstation name: [email or web address]
--- NOTE | 2020-04-25 12:44 | RADIOLOGY REPORT (SQ) ---
EXAM DESCRIPTION: CHEST SINGLE VIEW IMAGES COMPLETED DATE/TIME: 04/25/2020 12:19 pm REASON FOR STUDY: ETT placement COMPARISON: 07/27/2016 EXAM PARAMETERS: NUMBER OF VIEWS: One view. TECHNIQUE: Single frontal radiographic view of the chest acquired. RADIATION DOSE: NA LIMITATIONS: None. FINDINGS: LUNGS AND PLEURA: No opacities, masses or pneumothorax. No pleural effusion. MEDIASTINUM AND HILAR STRUCTURES: No masses. Contour normal. HEART AND VASCULAR STRUCTURES: Heart normal in size. Normal vasculature. BONES: No acute findings. HARDWARE: Endotracheal tube extends into the right mainstem bronchus. NG tube is present in the left mainstem bronchus. OTHER: No other significant finding. IMPRESSION: Endotracheal tube extends into the right mainstem bronchus. NG tube is is in the left m ainstem bronchus. COMMENT: Pertinent findings on the imaging study reported as a CRITICAL RESULT to CAROLEE Gomez t12:37 on 04/25/2020. Category of Critical Result: Tube placement TECHNICAL DOCUMENTATION: JOB ID: [id number] 2010 [employer]- All Rights Reserved Reading location - IP/workstation name: [email or web address]
[2020-04-25] MEDS: MIDAZOLAM HCL 50 MG/100 ML RTUINJ IV PRN ×2 (12:45→13:06)
[2020-04-25 12:59] LABS: ALBUMIN 4.5 g/dL (3.5-5.0); ALKALINE PHOSPHATASE 90 U/L (38-126); ASPARTATE AMINO TRANSFERASE 21 U/L (14-36); BILIRUBIN,DIRECT 0.3 mg/dL (0.0-0.4); BILIRUBIN,TOTAL 0.4 mg/dL (0.2-1.3); BLOOD UREA NITROGEN 33 mg/dL (7-20); CALCIUM 10.7 mg/dL (8.4-10.2); CREATINE KINASE 26 U/L (30-135); POTASSIUM 5.5 mmol/L (3.6-5.0); TOTAL PROTEIN 7.6 g/dL (6.3-8.2)
[2020-04-25 13:05] LABS: CARBON DIOXIDE 14 mmol/L (22-30); CHLORIDE 90 mmol/L (98-107)
--- NOTE | 2020-04-25 13:07 | ER Document Report ---
ED General - General Stated Complaint: DIFFICULTY BREATHING Time Seen by Provider: 04/25/20 12:01 Primary Care Provider: SERAFIN HEADLEY DO [Primary Care Provider] - Follow up as needed TRAVEL OUTSIDE OF THE [place] IN LAST 30 DAYS: No - HPI Notes: Patient is a 75-year-old female brought into the emergency department for evaluation by EMS. History is obtained from family and EMS. Patient's son and udhkfjut-bv-haq provide information after examination. Evidently they last saw her well at approximately 8 PM last night. They talked to her on the phone last night as well. At 9 AM the vjdvoghe-io-oam attempted to contact her, she did not answer the phone. They went to the house and no one answered the door, so they called a sister of the patient, who lives nearby. The patient sister stated she had spoken to her on the phone at approximately 11 AM. At that point she had said that she would open the back door for family to come, and she was going to fix her self a bowl of cereal. When family entered the home, the patient was found unresponsive on the couch. The cereal was spilled on the f nery. According to dygprpgf-[id number] she had a significant right facial droop. The patient does have a history of stroke but no residual deficits per the family. EMS arrived and noted the facial droop, the patient then had a seizure. Patient was intubated in the field. She was administered ketamine and rocuronium. She was found to be significantly hypotensive so push dose epi was administered and the patient was started on a Levophed drip. - Related Data Allergies/Adverse Reactions: penicillin G [Penicillin G] Allergy (Severe, Verified 04/25/20 12:43) Hives Home Medications: Medication list reviewed at bedside Past Medical History - General Information source: Patient - Social History Smoking Status: Former Smoker Chew tobacco use (# tins/day): Yes Frequency of alcohol use: None Family History: Reviewed & Not Pertinent, Hypertension - Past Medical History Cardiac Medical History: Reports: Hx Hypercholesterolemia, Hx Hypertension Neurological Medical History: Reports: Hx Cerebrovascular Accident, Hx Seizures - Seizure-free for at least 3 years per [id number] Endocrine Medical History: Reports: Hx Diabetes Mellitus Type 2 Renal/ Medical History: Denies: Hx Peritoneal Dialysis Musculoskeletal Medical History: Reports Hx Arthritis Psychiatric Medical History: Reports: Hx Depression Past Surgical History: Reports: Hx Hysterectomy - Immunizations Hx Diphtheria, Pertussis, Tetanus Vaccination: No Hx Pneumococcal Vaccination: 04/24/12 Review of Systems - Review of Systems -: Yes ROS unobtainable due to patient's medical condition Physical Exam - Vital signs Vitals: Temp 98.1 F 04/25/20 11:50 - Notes Notes: Is a frail-appearing 75-year-old female. She is intubated and sedated. Assisted respirations. Head is normocephalic and appears atraumatic, pupils are 2 mm, minimally reactive. Oral mucosa is moist. Heart is regular rate and rhythm. Lungs reveal coarse breath sounds with ventilation. Abdomen scaphoid, appears nontender. GCS is 3. Patient makes no spontaneous movements. She is not breathing over the ventilator. Course - Re-evaluation Re-evalutation: 04/25/20 13:15 Patient presented to the emergency department for evaluation. EMS report given directly to this physician. Patient was placed on a school lunch monitor. At some point during transport, the adapter was cut on the ET tube, so this was replaced. Please see attached procedure note. I was notified by radiology that the tube was in the right mainstem, despite having breath sounds bilaterally. I immediately noticed that the patient's NG tube is in the left mainstem bronchus, and this was ordered to be withdrawn and replaced. Tube was withdrawn. Repeat x-ray pending. Because of the report of a facial droop, I was concerned about the possibility of an intracranial process, so immediate CT of the head was ordered. Further lab orders placed. Patient is blood pressure was high on the Levophed, so this was slowly weaned off. Patient's blood pressures have been very labile. She has been as low as 90s over 60s, as high as triple over travel. I do not feel comfortable administering any medications to alter this blood pressure given the significant highs and lows she has been experiencing. She still does not appear to be responsive in any way. It is unclear as to whether or not this is secondary to the postictal state, the medications and sedation she is received. I ordered a Versed drip, but it has not been instituted, the patient is not gagging over the tube. She did not gag with NG placement. She has not made any efforts of spontaneous movement. She was loaded with Keppra secondary to the reported seizure. We will start the patient on an insulin drip, as it was just reported to me by nursing that the patient's glucose was nearly 1000. We will review the remainder of labs. 04/25/20 13:18 Labs revealed DKA and hyperkalemia. Patient was started on IV fluids and an insulin drip. 04/25/20 14:[address] Kinney about this patient. We agreed that there is a possibility that the patient would require neuro intervention, she certainly is not a good thrombolytic candidate given her seizure as well as very labile blood pressure. Given this information I contacted [facility]. She was called as a code stroke. I spoke with Dr. Dyer, notified him of all of the patient's findings. He did accept the patient in transfer. 04/25/20 14:34 Flight crew at bedside to collect patient. At this point I do have suspicion that the patient is not a CVA, but may be just a prolonged postictal state. She is moving all 4 extremities spontaneously and required some sedation. Her vitals are otherwise stable, pressure of 140s over 80s. She will be transferred to [facility]. - Vital Signs Vital signs: Temp Pulse Resp BP Pulse Ox 98.1 F 22 H 141/84 H 100 04/25/20 11:50 04/25/20 14:30 04/25/20 14:30 04/25/20 14:30 - Laboratory Results Result Diagrams: 04/25/20 11:55 04/25/20 11:55 Laboratory Results Interpreted: 04/25/20 04/25/20 04/25/20 11:55 11:55 12:35 MCV 99 H MCHC 31.8 L [place] % (Auto) 2.3 L Seg Neutrophils % 80.1 H APTT Sodium 129.8 L Potassium 5.5 H Chloride 90 L Carbon Dioxide 14 L Anion Gap 26 H BUN 33 H Creatinine 2.00 H Est GFR ( Amer) 29 L Est GFR (MDRD) Non-Af 24 L Glucose 978 H* Calcium 10.7 H Creatine Kinase 26 L Urine Protein 100 H Urine Glucose (UA) >=500 H Urine Ketones TRACE H 04/25/20 12:58 MCV MCHC [place] % (Auto) Seg Neutrophils % APTT 21.5 L Sodium Potassium Chloride Carbon Dioxide Anion Gap BUN Creatinine Est GFR ( Amer) Est GFR (MDRD) Non-Af Glucose Calcium Creatine Kinase Urine Protein Urine Glucose (UA) Urine Ketones Critical Laboratory Results Reviewed: Yes Attending or Supervising Physician who Reviewed Labs: CAROLEE العلي - Radiology Results Radiology Results Interpreted: 04/25/20 13:18 Chest X-Ray 04/25/20 12:01 IMPRESSION: Endotracheal tube extends into the right mainstem bronchus. NG tube is is in the left mainstem bronchus. Head CT 04/25/20 12:01 IMPRESSION: CHRONIC CHANGES OF ATROPHY AND MICROVASCULAR ISCHEMIA. NO ACUTE PROCESS. EVIDENCE OF ACUTE STROKE: NO. Critical Radiology Results Reviewed: Yes Attending or Supervising Physician who Reviewed Radiology: CAROLEE العلي - EKG Interpretation by Me Additional EKG results interpreted by me: 04/25/20 14:12 Sinus mechanism with a rate of 88 bpm. Normal axis and intervals. Mildly peaked T waves which is different from prior studies. Otherwise no acute ST elevation concerning for ischemia or infarction. Procedures - Intubation Orotracheal Airway evaluation: Normal anatomy Medications: Other - No new sedation, patient had already received ketamine and rocuronium in the field Intubation method: Orotracheal Blade type: Shayla Blade size: 3 Equipment used: Glidescope ETT size: 6.5 Breath Sounds after Intubation: Equal End tidal CO2 confirmed: Yes Ventilator settings: SIMV Post Intubation Xray: Yes - Tube was low, withdrawn Intubation Complications: No complications Critical Care Note - Critical Care Note Total time excluding time spent on procedures (mins): 70 Discharge - Discharge Clinical Impression: Seizure, DKA, type 1, Hyperkalemia, Cerebrovascular accident (CVA) determined by clinical assessment, Acute kidney injury (nontraumatic) Condition: Stable Disposition: [facility] Admitting Provider: Dr. Dyer Referrals: SERAFIN HEADLEY DO [Primary Care Provider] - Follow up as needed
[2020-04-25 13:12] LABS: ANION GAP 26 (5-19)
[2020-04-25 13:16] LABS: GLUCOSE 978 mg/dL (75-110)
[2020-04-25 13:21] LABS: INTERNATIONAL RATION (INR) 0.97; PARTIAL THROMBOPLASTIN TIME 21.5 SEC (23.5-35.8); PROTHROMBIN TIME 13.1 SEC (11.4-15.4)
[2020-04-25] MEDS ORDERED: INSULIN REG, HUMAN 100 UNIT/ML 3 ML VIAL (PYX) IV ONE (13:21)
[2020-04-25] MEDS ORDERED: NORMAL SALINE 1000 ML 1,000 ML IV ONE ×2 (13:23)
[2020-04-25] MEDS ORDERED: GLUCAGON,HUMAN RECOMB 1 MG INJ IM PRN (13:38)
[2020-04-25] MEDS ORDERED: DEXTROSE 40% GEL 15 GM TUBE PO PRN ×2 (13:38)
[2020-04-25] MEDS ORDERED: NORMAL SALINE 100 ML with INSULIN REGULAR, HUMAN 100 UNIT IV PRN ×2 (13:38)
[2020-04-25] MEDS ORDERED: DEXTROSE 50%-WATER 25 GM/50 ML DISP.SYRIN IV PRN ×2 (13:38)
--- NOTE | 2020-04-25 13:40 | RADIOLOGY REPORT (SQ) ---
EXAM DESCRIPTION: CHEST SINGLE VIEW IMAGES COMPLETED DATE/TIME: 04/25/2020 1:05 pm REASON FOR STUDY: ETT moved, NG tube COMPARISON: None. EXAM PARAMETERS: NUMBER OF VIEWS: One view. TECHNIQUE: Single frontal radiographic view of the chest acquired. RADIATION DOSE: NA LIMITATIONS: None. FINDINGS: LUNGS AND PLEURA: No opacities, masses or pneumothorax. No pleural effusion. MEDIASTINUM AND HILAR STRUCTURES: No masses. Contour normal. HEART AND VASCULAR STRUCTURES: Heart normal in size. Normal vasculature. BONES: No acute findings. HARDWARE: The endotracheal tube has its tip 2 cm above the kristopher. NG tube now extends into the stom ach. OTHER: No other significant finding. IMPRESSION: Tube placement as described. TECHNICAL DOCUMENTATION: JOB ID: [id number] 2010 [employer]- All Rights Reserved Reading location - IP/workstation name: [email or web address]
[2020-04-25 13:58] LABS: APPEARANCE,URINE SLIGHTLY-CLOUDY; BILIRUBIN,URINE NEGATIVE (NEGATIVE); COLOR,URINE YELLOW; GLUCOSE, URINE >=500 mg/dL (NEGATIVE); KETONES,URINE TRACE mg/dL (NEGATIVE); LEUKOCYTE ESTERASE,URINE NEGATIVE (NEGATIVE); NITRITE,URINE NEGATIVE (NEGATIVE); PROTEIN,URINE 100 mg/dL (NEGATIVE); URINE SPECIFIC GRAVITY 1.025; UROBILINOGEN,URINE NEGATIVE mg/dL (<2.0)
[2020-04-25 14:47] VITALS: BP 141/84
--- NOTE | 2020-04-25 21:29 | EKG REPORT ---
SEVERITY:- NORMAL ECG - SINUS RHYTHM : Confirmed by: Amisha Parra MD 25-Apr-2020 21:28:46
== END 2020-04-25 14:50 | disposition short-term general hospital (02) ==
LOC: ER 11:50
DX: I63.9 Cerebral infarction, unspecified (principal); R29.810 Facial weakness; I10 Essential (primary) hypertension; E10.10 Type 1 diabetes mellitus with ketoacidosis without coma; N17.9 Acute kidney failure, unspecified; E87.5 Hyperkalemia; R56.9 Unspecified convulsions; Z20.828 Contact with and (suspected) exposure to other viral communicable diseases; Z88.0 Allergy status to penicillin; Z87.891 Personal history of nicotine dependence
CPT/HCPCS: 93005; 99291; 51702; 96375; 96365; 96366; 96368; 36415; 82550; 83935; 85025; 85610; 85730; 0202U ×23; 80053; 81001; 84484; 71045; 70450; 94660; 93010; 31500; J2250; J7030; J1953; 82962

== ENCOUNTER 2020-05-05 18:11 | Emergency (ER) | payer MEDICARE, MEDICAID ==
[2020-05-05] MEDS ORDERED: NORMAL SALINE 1000 ML 1,000 ML IV ONE ×2 (18:36→21:39)
--- NOTE | 2020-05-05 18:42 | ER Document Report ---
ED Medical Screen (RME) - General Chief Complaint: High Blood Sugar Stated Complaint: BLOOD SUGAR ISSUES Time Seen by Provider: 05/05/20 18:34 Primary Care Provider: SERAFIN HEADLEY DO [Primary Care Provider] - Follow up as needed Mode of Arrival: Medic Information source: Patient Notes: 75-year-old female presented to ED for elevated blood sugar. She was discharged from [facility] on after being hospitalized for DKA. She states she has not had any insulin since being discharged on she states that the arm she has messed up her insulin orders again. She will be ordered a DKA work- up and she will be seen by another provider I have greeted and performed a rapid initial assessment of this patient. A comprehensive ED assessment and evaluation of the patient, analysis of test results and completion of medical decision making process will be conducted by an additional ED providers. TRAVEL OUTSIDE OF THE [place] IN LAST 30 DAYS: No - Related Data Allergies/Adverse Reactions: penicillin G [Penicillin G] Allergy (Severe, Verified 04/25/20 12:43) Hives Past Medical History - Past Medical History Cardiac Medical History: Reports: Hx Hypercholesterolemia, Hx Hypertension Neurological Medical History: Reports: Hx Cerebrovascular Accident, Hx Seizures - Seizure-free for at least 3 years per [id number] Endocrine Medical History: Reports: Hx Diabetes Mellitus Type 2 Renal/ Medical History: Denies: Hx Peritoneal Dialysis Musculoskeltal Medical History: Reports Hx Arthritis Psychiatric Medical History: Reports: Hx Depression Past Surgical History: Reports: Hx Hysterectomy - Immunizations Hx Diphtheria, Pertussis, Tetanus Vaccination: No Physical Exam - Vital signs Vitals: Temp Pulse Resp BP Pulse Ox 98.1 F 101 H 16 173/68 H 99 05/05/20 18:25 05/05/20 18:25 05/05/20 18:25 05/05/20 18:25 05/05/20 18:25 Course - Vital Signs Vital signs: Temp Pulse Resp BP Pulse Ox 98.1 F 101 H 16 173/68 H 99 05/05/20 18:25 05/05/20 18:25 05/05/20 18:25 05/05/20 18:25 05/05/20 18:25 Doctor's Discharge - Discharge Referrals: SERAFIN HEADLEY DO [Primary Care Provider] - Follow up as needed
[2020-05-05 20:20] LABS: HEMATOCRIT 28.7 % (36.0-47.0); HEMOGLOBIN 9.5 g/dL (12.0-15.5); MEAN CORPUSCULAR HEMOGLOBIN 32.8 pg (27.0-33.4); MEAN CORPUSCULAR VOLUME 100 fl (80-97); PLATELET COUNT 543 10^3/uL (150-450); RED BLOOD COUNT 2.88 10^6/uL (3.72-5.28); RED CELL DISTRIBUTION WIDTH 13.3 % (11.5-14.0); WHITE BLOOD COUNT 14.1 10^3/uL (4.0-10.5)
[2020-05-05 20:25] LABS: APPEARANCE,URINE CLEAR; BILIRUBIN,URINE NEGATIVE (NEGATIVE); COLOR,URINE STRAW; GLUCOSE, URINE >=500 mg/dL (NEGATIVE); KETONES,URINE TRACE mg/dL (NEGATIVE); LEUKOCYTE ESTERASE,URINE NEGATIVE (NEGATIVE); NITRITE,URINE NEGATIVE (NEGATIVE); PROTEIN,URINE 30 mg/dL (NEGATIVE); URINE SPECIFIC GRAVITY 1.022; UROBILINOGEN,URINE NEGATIVE mg/dL (<2.0)
[2020-05-05 20:36] LABS: ABSOLUTE LYMPHOCYTES# (MANUAL) 3.7 10^3/uL (0.5-4.7); ABSOLUTE MONOCYTES # (MANUAL) 0.6 10^3/uL (0.1-1.4); BAND NEUTROPHILS % (MANUAL) 3 % (3-5); BASOPHILS % (MANUAL) 0 % (0-2); EOSINOPHILS % (MANUAL) 0 % (0-6); LYMPHOCYTES % (MANUAL) 26 % (13-45); MONOCYTES % (MANUAL) 4 % (3-13); NUCLEATED RED BLOOD CELLS 2 /100 WBC (0); SEGMENTED NEUTROPHILS % (MAN) 67 % (42-78); TOTAL CELLS COUNTED 100
[2020-05-05 20:37] LABS: PLATELET COMMENT ADEQUATE; POLYCHROMASIA 1+
--- NOTE | 2020-05-05 20:38 | EKG REPORT ---
SEVERITY:- BORDERLINE ECG - SINUS RHYTHM BORDERLINE LEFT AXIS DEVIATION CONSIDER ANTERIOR INFARCT : Confirmed by: Jack Marin MD 05-May-2020 20:38:15
[2020-05-05] MEDS ORDERED: GLUCAGON,HUMAN RECOMB 1 MG INJ IM PRN (21:45)
[2020-05-05] MEDS ORDERED: NORMAL SALINE 100 ML with INSULIN REGULAR, HUMAN 100 UNIT IV PRN ×2 (21:45)
[2020-05-05] MEDS ORDERED: DEXTROSE 50%-WATER 25 GM/50 ML DISP.SYRIN IV PRN ×2 (21:45)
[2020-05-05] MEDS ORDERED: DEXTROSE 40% GEL 15 GM TUBE PO PRN ×2 (21:45)
[2020-05-05 21:48] LABS: ALBUMIN 3.1 g/dL (3.5-5.0); ALKALINE PHOSPHATASE 92 U/L (38-126); ANION GAP 14 (5-19); ASPARTATE AMINO TRANSFERASE 29 U/L (14-36); BILIRUBIN,DIRECT 0.2 mg/dL (0.0-0.4); BILIRUBIN,TOTAL 0.5 mg/dL (0.2-1.3); BLOOD UREA NITROGEN 17 mg/dL (7-20); CALCIUM 8.2 mg/dL (8.4-10.2); CARBON DIOXIDE 14 mmol/L (22-30); CHLORIDE 108 mmol/L (98-107); CREATINE KINASE 32 U/L (30-135); GLUCOSE 364 mg/dL (75-110); POTASSIUM 3.8 mmol/L (3.6-5.0); TOTAL PROTEIN 5.9 g/dL (6.3-8.2)
[2020-05-05] MEDS ORDERED: INSULIN NPH (ISOPHANE), HUMAN 100 UNIT/ML 3 ML ONE (22:17)
[2020-05-05 23:20] LABS: ARTERIAL BLOOD BASE EXCESS -3.8 mmol/L; ARTERIAL BLOOD FIO2 ROOM AIR; ARTERIAL BLOOD H2CO3 0.95 mmol/L (1.05-1.35); ARTERIAL BLOOD O2 SATURATION 97.5 % (94-98); ARTERIAL BLOOD PCO2 31.4 mmHg (35-45); ARTERIAL BLOOD PH 7.42 (7.35-7.45); ARTERIAL BLOOD PO2 95.6 mmHg (80-100)
[2020-05-06 03:15] VITALS: BP 112/65
--- NOTE | 2020-05-06 03:29 | ER Document Report ---
ED General - General Chief Complaint: High Blood Sugar Stated Complaint: BLOOD SUGAR ISSUES Time Seen by Provider: 05/05/20 18:34 Primary Care Provider: SERAFIN HEADLEY DO [Primary Care Provider] - Follow up as needed Mode of Arrival: Medic Notes: Patient presents to the ER for evaluation of elevated blood glucose. The patient reportedly began having difficulty controlling her blood sugar with Metformin approximately 10 days ago. She was initially admitted to this hospital and transferred to [facility] for DKA. While at [facility], they took her off of Metformin and added insulin to her usual diabetes regimen. The patient reportedly was not able to get her insulin prescription because it was sent to the wrong pharmacy. Due to the holiday, she was unable to get this fixed. Per her son, they have been able to get the prescription sent to the correct pharmacy and should be able to pick it up tomorrow morning. She denies fever. She denies nausea or vomiting. She states she feels generally unwell. Nursing notes reviewed and past medical, social, and family histories reviewed and validated. TRAVEL OUTSIDE OF THE [place] IN LAST 30 DAYS: No - Related Data Allergies/Adverse Reactions: penicillin G [Penicillin G] Allergy (Severe, Verified 04/25/20 12:43) Hives Home Medications: metformin , amlodipine, atorvastatin, insulin Past Medical History - General Information source: Patient - Social History Smoking Status: Never Smoker Chew tobacco use (# tins/day): No Frequency of alcohol use: None Drug Abuse: None Lives with: Family Family History: Hypertension Patient has homicidal ideation: No - Past Medical History Cardiac Medical History: Reports: Hx Hypercholesterolemia, Hx Hypertension Pulmonary Medical History: Reports: None EENT Medical History: Reports: None Neurological Medical History: Reports: Hx Cerebrovascular Accident, Hx Seizures - Seizure-free for at least 3 years per [id number] Endocrine Medical History: Reports: Hx Diabetes Mellitus Type 2 Renal/ Medical History: Reports: None Malignancy Medical History: Reports: None GI Medical History: Reports: None Musculoskeletal Medical History: Reports Hx Arthritis Skin Medical History: Reports None Psychiatric Medical History: Reports: Hx Depression Traumatic Medical History: Reports: None Infectious Medical History: Reports: None Past Surgical History: Reports: Hx Hysterectomy - Immunizations Immunizations up to date: Yes Hx Diphtheria, Pertussis, Tetanus Vaccination: No Hx Pneumococcal Vaccination: 04/24/12 Review of Systems - Review of Systems Notes: Constitutional: Negative for fever. HENT: Negative for sore throat. Eyes: Negative for visual changes. Cardiovascular: Negative for chest pain. Respiratory: Negative for shortness of breath. Gastrointestinal: Negative for abdominal pain, vomiting or diarrhea. Genitourinary: Negative for dysuria. Musculoskeletal: Negative for back pain. Skin: Negative for rash. Neurological: Negative for headaches, weakness or numbness. 10 point ROS negative except as marked above and in HPI. Physical Exam - Vital signs Vitals: Temp Pulse Resp BP Pulse Ox 98.1 F 101 H 16 173/68 H 99 05/05/20 18:25 05/05/20 18:25 05/05/20 18:25 05/05/20 18:25 05/05/20 18:25 - Notes Notes: CONSTITUTIONAL: The patient is elderly and frail appearing. She is in no acute distress. SKIN: Warm, dry, and intact without rash EYES: Extraocular movements are grossly intact, clear conjunctiva HENT: Normocephalic, atraumatic, dry mucus membranes NECK: No obvious swelling, normal range of motion PULMONARY: Normal chest rise and fall. Breath sounds clear and equal bilaterally. No respiratory distress or stridor CARDIOVASCULAR: Regular rate. No murmurs, rubs, gallops. Distal extremities are warm and well perfused. ABDOMINAL: Soft, nontender NEUROLOGIC: Normal speech, moves all extremities. MUSCULOSKELETAL: No gross deformities, atraumatic PSYCHIATRIC: Normal mood and affect Course - Vital Signs Vital signs: Temp Pulse Resp BP Pulse Ox 98.0 F 101 H 18 112/65 99 05/06/20 03:52 05/05/20 18:25 05/06/20 03:01 05/06/20 03:00 05/06/20 03:01 - Laboratory Results Result Diagrams: 05/05/20 20:00 05/05/20 21:18 Laboratory Results Interpreted: 05/05/20 05/05/20 05/05/20 20:00 20:00 21:18 WBC 14.1 H RBC 2.88 L Hgb 9.5 L Hct 28.7 L MCV 100 H Plt Count 543 H Abs Neuts (Manual) 9.9 H Carbonic Acid ABG pCO2 Sodium 135.5 L Chloride 108 H Carbon Dioxide 14 L Est GFR (MDRD) Non-Af 57 L Glucose 364 H POC Glucose Calcium 8.2 L ALT 78 H Total Protein 5.9 L Albumin 3.1 L Urine Protein 30 H Urine Glucose (UA) >=500 H Urine Ketones TRACE H 05/05/20 05/05/20 05/06/20 22:46 23:02 00:24 WBC RBC Hgb Hct MCV Plt Count Abs Neuts (Manual) Carbonic Acid 0.95 L ABG pCO2 31.4 L Sodium Chloride Carbon Dioxide Est GFR (MDRD) Non-Af Glucose POC Glucose 380 H 325 H Calcium ALT Total Protein Albumin Urine Protein Urine Glucose (UA) Urine Ketones 05/06/20 05/06/20 01:26 02:30 WBC RBC Hgb Hct MCV Plt Count Abs Neuts (Manual) Carbonic Acid ABG pCO2 Sodium Chloride Carbon Dioxide Est GFR (MDRD) Non-Af Glucose POC Glucose 284 H 249 H Calcium ALT Total Protein Albumin Urine Protein Urine Glucose (UA) Urine Ketones Critical Laboratory Results Reviewed: Yes Attending or Supervising Physician who Reviewed Labs: CASSIDY TURCIOS IV - Radiology Results Critical Radiology Results Reviewed: No Critical Results - EKG Interpretation by Pa EKG shows normal: Sinus rhythm Discharge - Discharge Clinical Impression: Type 2 diabetes mellitus with hyperglycemia Qualifiers: Diabetes mellitus exterminator helper termite insulin use: without jail use Qualified Code(s): E11.65 - Type 2 diabetes mellitus with hyperglycemia Condition: Stable Disposition: HOME, SELF-CARE Instructions: Diabetes ([facility]) Additional Instructions: Make sure to obtain your insulin prescription at the pharmacy in the morning. Return to the emergency room if your condition changes or worsens. Referrals: SERAFIN HEADLEY DO [Primary Care Provider] - Follow up as needed
== END 2020-05-06 03:52 | disposition home or self-care (01) ==
LOC: ER 18:11
DX: E11.65 Type 2 diabetes mellitus with hyperglycemia (principal); T38.3X6A Underdosing of insulin and oral hypoglycemic [antidiabetic] drugs, initial encounter; Z91.138 Patient's unintentional underdosing of medication regimen for other reason; Z91.14 Patient's other noncompliance with medication regimen; E78.00 Pure hypercholesterolemia, unspecified; I10 Essential (primary) hypertension; Z79.899 Other long term (current) drug therapy; Z88.0 Allergy status to penicillin
CPT/HCPCS: 93005; 99284; 96361 ×2; 96365; 96366 ×2; 36415; 82962; 82803; 82550; 85025; 80053; 81001; 93010; J7030

== ENCOUNTER → 2020-05-09 | Outpatient (CLI) | payer MEDICARE, MEDICAID ==
[2020-05-09 12:50] LABS: ABSOLUTE BASOPHILS # (AUTO) 0.1 10^3/uL (0.0-0.2); ABSOLUTE EOSINOPHILS # (AUTO) 0.1 10^3/uL (0.0-0.6); ABSOLUTE LYMPHOCYTES (AUTO) 2.3 10^3/uL (0.5-4.7); ABSOLUTE MONOCYTES (AUTO) 0.3 10^3/uL (0.1-1.4); ABSOLUTE NEUT (AUTO) 6.1 10^3/uL (1.7-8.2); BASOPHILS % (AUTO) 0.7 % (0-2); EOSINOPHILS % (AUTO) 0.6 % (0-6); HEMATOCRIT 26.8 % (36.0-47.0); HEMOGLOBIN 9.1 g/dL (12.0-15.5); LYMPHOCYTES % (AUTO) 25.9 % (13-45); MEAN CORPUSCULAR HEMOGLOBIN 33.1 pg (27.0-33.4); MEAN CORPUSCULAR HGB CONC 33.9 g/dL (32.0-36.0); MEAN CORPUSCULAR VOLUME 98 fl (80-97); MONOCYTES % (AUTO) 3.5 % (3-13); PLATELET COUNT 487 10^3/uL (150-450); RED BLOOD COUNT 2.75 10^6/uL (3.72-5.28); RED CELL DISTRIBUTION WIDTH 15.5 % (11.5-14.0); SEGMENTED NEUTROPHILS % (AUTO) 69.3 % (42-78); TOTAL CELLS COUNTED % (AUTO) 100 %; WHITE BLOOD COUNT 8.8 10^3/uL (4.0-10.5)
[2020-05-09 12:59] LABS: ALBUMIN 3.8 g/dL (3.5-5.0); ALKALINE PHOSPHATASE 89 U/L (38-126); ANION GAP 10 (5-19); ASPARTATE AMINO TRANSFERASE 27 U/L (14-36); BILIRUBIN,DIRECT 0.2 mg/dL (0.0-0.4); BILIRUBIN,TOTAL 0.7 mg/dL (0.2-1.3); BLOOD UREA NITROGEN 14 mg/dL (7-20); CALCIUM 10.1 mg/dL (8.4-10.2); CARBON DIOXIDE 23 mmol/L (22-30); CHLORIDE 103 mmol/L (98-107); GLUCOSE 281 mg/dL (75-110); POTASSIUM 4.1 mmol/L (3.6-5.0); TOTAL PROTEIN 6.8 g/dL (6.3-8.2)
[2020-05-12 13:18] LABS: GLUTAMIC ACID DECARBOXYL-65 AB <5.0 U/mL (0.0-5.0)
== END ==
LOC: OD 09:35
PROVIDERS: ATTEND Family Medicine
DX: E11.9 Type 2 diabetes mellitus without complications (principal); Z13.89 Encounter for screening for other disorder
CPT/HCPCS: 36415; 80053; 83519; 84681; 85025; 86341

== ENCOUNTER → 2020-05-17 | Outpatient (CLI) | payer MEDICARE, MEDICAID ==
--- NOTE | 2020-05-17 13:02 | RADIOLOGY REPORT (SQ) ---
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 TECHNIQUE: CT scanogram of the bilateral lower extremities is performed including pelvis to ankles. Measurements of femur, tibia, and entire lower extremities performed by the radiologist and saved to PACS. All CT scanners at this facility use dose modulation, iterative reconstruction, and/or weight based d osing when appropriate to reduce radiation dose to as low as reasonably achievable (ALARA). [facility]: Dose Right [facility]: CareDose [facility]: Dose Right [facility]: Teradose 4D [facility]: [employer] RADIATION DOSE: mGy. LIMITATIONS: None. FINDINGS: RIGHT: FEMUR: 42 cm. TIBIA: 32.2 cm. TOTAL RIGHT LOWER EXTREMITY LENGTH (INCLUDES THE KNEE JOINT SPACE): 73.4 cm. LEFT: FEMUR: 42 cm. TIBIA: 32.2 cm. TOTAL LEFT LOWER EXTREMITY LENGTH (INCLUDES THE KNEE JOINT SPACE): 73.7 cm. IMPRESSION: LEG LENGTH MEASUREMENTS DETAILED ABOVE. TECHNICAL DOCUMENTATION: JOB ID: [id number] Quality ID # [id number]: Final reports with documentation of one or more dose reduction techniques (e.g., Au tomated exposure control, adjustment of the mA and/or kV according to patient size, use of iterative reconstruction technique) 2010 [email or web address]- All Rights Reserved Reading location - IP/workstation name: [email or web address]
== END ==
LOC: RAD 10:21
PROVIDERS: ATTEND Podiatrist Foot & Ankle Surgery
DX: Q72.819 Congenital shortening of unspecified lower limb (principal); M79.673 Pain in unspecified foot; M77.30 Calcaneal spur, unspecified foot
CPT/HCPCS: 77073

== ENCOUNTER → 2020-05-22 | Outpatient (CLI) | payer MEDICARE, MEDICAID ==
--- NOTE | 2020-05-22 13:00 | RADIOLOGY REPORT (SQ) ---
EXAM DESCRIPTION: FOOT RIGHT COMPLETE IMAGES COMPLETED DATE/TIME: 05/22/2020 12:16 pm REASON FOR STUDY: (M79.671)PAIN IN RIGHT FOOT M79.671 PAIN IN RIGHT FOOT COMPARISON: None. NUMBER OF VIEWS: Three views. TECHNIQUE: AP, lateral and oblique without weight bearing radiographic images acquired of the right foot. LIMITATIONS: None. FINDINGS: MINERALIZATION: Normal. BONES: No acute fracture or dislocation. No worrisome bone lesions. Posterior and plantar calcaneal s purs. JOINTS: No erosions. No denise-articular osteopenia. No chondrocalcinosis. SOFT TISSUES: Prominent os peroneum. OTHER: No other significant finding. IMPRESSION: Prominent os peroneum. No acute finding. Calcaneal spurs. TECHNICAL DOCUMENTATION: JOB ID: [id number] [employer]- All Rights Reserved Reading location - IP/workstation name: [email or web address]
== END ==
LOC: RAD 12:03
PROVIDERS: ATTEND Podiatrist Foot & Ankle Surgery
DX: M77.31 Calcaneal spur, right foot (principal); M79.671 Pain in right foot

== ENCOUNTER → 2020-06-05 | Outpatient (CLI) | payer MEDICARE, MEDICAID ==
[2020-06-05 12:54] LABS: ANION GAP 15 (5-19); BLOOD UREA NITROGEN 17 mg/dL (7-20); CALCIUM 10.3 mg/dL (8.4-10.2); CARBON DIOXIDE 21 mmol/L (22-30); CHLORIDE 100 mmol/L (98-107); GLUCOSE 280 mg/dL (75-110); POTASSIUM 4.7 mmol/L (3.6-5.0)
== END ==
LOC: OD 10:49
PROVIDERS: ATTEND Family Medicine
DX: E11.9 Type 2 diabetes mellitus without complications (principal)
CPT/HCPCS: 36415; 80048